=== PATIENT | female | born 1995 | race Caucasian/White ===

== ENCOUNTER 2018-11-21 08:15 | Emergency (ER) | payer SELFPAY ==
[2018-11-21] MEDS ORDERED: AZITHROMYCIN 250 MG TAB ONE (09:00)
[2018-11-21] MEDS ORDERED: CEFTRIAXONE 1000 MG/VIAL ONE (09:00)
[2018-11-21] MEDS ORDERED: LIDOCAINE 1% MPF 5 ML VIAL ONE (09:00)
[2018-11-21 09:34] LABS: Urine Blood TRACE (NEG); Urine Glucose NEGATIVE (NEG); Urine Protein NEGATIVE (NEG); Urine Specific Gravity 1.025 (1.005-1.030)
--- NOTE | 2018-11-21 09:40 | ER ---
Nurse's Notes [facility] Name: Denise Mistry Age: 23 yrs Sex: Female : 1995 Arrival Date: 11/21/2018 Time: 08:20 Bed 20 Private MD: Diagnosis: Abdominal tenderness;Dysuria;Polycystic ovarian syndrome Presentation: 11/21 08:35 Presenting complaint: Suprapubic pain, urinary incontinence, and recent possible STD hb exposure. Transition of care: patient was not received from another setting of care. Onset of symptoms was November 21, 2018. Risk Assessment: Do you want to hurt yourself or someone else? Patient reports no desire to harm self or others. Initial Sepsis Screen: Does the patient meet any 2 criteria? No. Patient's initial sepsis screen is negative. Does the patient have a suspected source of infection? No. Patient's initial sepsis screen is negative. Care prior to arrival: None. 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 - Social history:: Smoking status: Patient uses tobacco products, smokes one-half pack cigarettes per day. - Ebola Screening: : No symptoms or risks identified at this time. - Family history:: not pertinent. Screenin:40 Abuse screen: Denies threats or abuse. Nutritional screening: No deficits noted. aa5 Tuberculosis screening: No symptoms or risk factors identified. Fall Risk None identified. Assessment: 08:40 General: Appears comfortable, Behavior is calm, cooperative. Pain: Complains of pain in aa5 suprapubic area Pain does not radiate. Pain currently is 3 out of 10 on a pain scale. Quality of pain is described as pressure, Is intermittent. Neuro: Level of Consciousness is awake, alert, obeys commands, Oriented to person, place, time, situation. Cardiovascular: Heart tones S1 S2 present Rhythm is regular. Respiratory: Airway is patent Respiratory effort is even, unlabored, Respiratory pattern is regular, symmetrical, Breath sounds are clear bilaterally. GI: Abdomen is round non-distended, Bowel sounds present X 4 quads. Abd is soft and non tender X 4 quads. Patient currently denies diarrhea, nausea, vomiting. : Reports pain with urination. EENT: No signs and/or symptoms were reported regarding the EENT system. Derm: Skin is pink, warm \T\ dry. Musculoskeletal: Range of motion: intact in all extremities. 09:27 Reassessment: Patient is alert, oriented x 3, equal unlabored respirations, skin aa5 warm/dry/pink. Vital Signs: 08:36 BP 156 / 89; Pulse 86; Resp 16; Temp 98.7; Pulse Ox 100% on R/A; Weight 81.65 kg; hb Height 5 ft. 3 in. (160.02 cm); Pain 3/10; 09:27 BP 122 / 80; Pulse 85; Resp 18 S; Pulse Ox 100% on R/A; aa5 08:36 Body Mass Index 31.89 (81.65 kg, 160.02 cm) hb ED Course: 08:20 Patient arrived in ED. cf2 08:22 Shashi Hyatt MD is Attending Physician. johnnie 08:32 Deb Villalpando, LINUS is Primary Nurse. aa5 08:35 Triage completed. hb 08:36 Arm band placed on. hb 08:40 Patient has correct armband on for positive identification. Bed in low position. Call aa5 light in reach. Side rails up X 1. 09:07 Urine collected: clean catch specimen, clear. dh3 09:39 Moe Miller MD is Referral Physician. johnnie 09:39 Catalina Romero MD is Referral Physician. johnnie 10:05 No provider procedures requiring assistance completed. Patient did not have IV access hb during this emergency room visit. Administered Medications: 09:27 Drug: Rocephin (cefTRIAXone) 1 grams Route: IM; Site: left gluteus; aa5 10:05 Follow up: Response: No adverse reaction aa5 09:27 Drug: Zithromax 1 grams Route: PO; aa5 10:05 Follow up: Response: No adverse reaction aa5 Outcome: 09:40 Discharge ordered by . johnnie 10:05 Discharged to home ambulatory. hb 10:05 Condition: stable 10:05 Discharge instructions given to patient, Instructed on discharge instructions, follow up and referral plans. medication usage, Demonstrated understanding of instructions, follow-up care, medications, Prescriptions given X 3. 10:06 Patient left the ED. Addendum: 11/24/2018 08:06 Addendum: Culture Results: Positive urine culture. No further action required. Bacteria s s sensitive to prescribed antibiotic. Signatures: Shashi Hyatt MD MD cha Calderon, Audri, RN RN aa5 Trish Arzola RN RN Monica Caruso RN RN Elma Green [facility] Sharon Ryder [facility]
--- NOTE | 2018-11-21 09:41 | EDPHYS ---
Physician Documentation [facility] Name: Denise Mistry Age: 23 yrs Sex: Female : 1995 Arrival Date: 11/21/2018 Time: 08:20 Bed 20 Private MD: ED Physician Shashi Hyatt HPI: 11/21 08:42 This 23 yrs old Female presents to ER via Ambulatory with complaints of johnnie Abdominal Pain, issues controlling bladder, passing blood clots. 08:42 The patient presents with urinary symptoms, dysuria, frequency, urgency. Onset: The johnnie symptoms/episode began/occurred 3 day(s) ago. Modifying factors: The symptoms are alleviated by nothing, the symptoms are aggravated by nothing. Associated signs and symptoms: The patient has no apparent associated signs or symptoms. Severity of symptoms: At their worst the symptoms were mild, in the emergency department the symptoms are unchanged. The patient is sexually active, reportedly has a single partner. 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 - Social history:: Smoking status: Patient uses tobacco products, smokes one-half pack cigarettes per day. - Ebola Screening: : No symptoms or risks identified at this time. - Family history:: not pertinent. ROS: 08:42 Constitutional: Negative for fever, chills, and weight loss, Eyes: Negative for injury, johnnie pain, redness, and discharge, ENT: Negative for injury, pain, and discharge, Neck: Negative for injury, pain, and swelling, Cardiovascular: Negative for chest pain, palpitations, and edema, Respiratory: Negative for shortness of breath, cough, wheezing, and pleuritic chest pain, Back: Negative for injury and pain, MS/Extremity: Negative for injury and deformity, Skin: Negative for injury, rash, and discoloration, Neuro: Negative for headache, weakness, numbness, tingling, and seizure, Psych: Negative for depression, anxiety, suicide ideation, homicidal ideation, and hallucinations, Allergy/Immunology: Negative for hives, rash, and allergies, Endocrine: Negative for neck swelling, polydipsia, polyuria, polyphagia, and marked weight changes, Hematologic/Lymphatic: Negative for swollen nodes, abnormal bleeding, and unusual bruising. 08:42 Abdomen/GI: Positive for nausea and vomiting, of the suprapubic area. 08:42 : Positive for urinary symptoms, urinary frequency, small amounts. Exam: 08:42 Constitutional: This is a well developed, well nourished patient who is awake, alert, johnnie and in no acute distress. Head/Face: Normocephalic, atraumatic. Eyes: Pupils equal round and reactive to light, extra-ocular motions intact. Lids and lashes normal. Conjunctiva and sclera are non-icteric and not injected. Cornea within normal limits. Periorbital areas with no swelling, redness, or edema. ENT: Nares patent. No nasal discharge, no septal abnormalities noted. Tympanic membranes are normal and external auditory canals are clear. Oropharynx with no redness, swelling, or masses, exudates, or evidence of obstruction, uvula midline. Mucous membranes moist. Neck: Trachea midline, no thyromegaly or masses palpated, and no cervical lymphadenopathy. Supple, full range of motion without nuchal rigidity, or vertebral point tenderness. No Meningismus. Chest/axilla: Normal chest wall appearance and motion. Nontender with no deformity. No lesions are appreciated. Cardiovascular: Regular rate and rhythm with a normal S1 and S2. No gallops, murmurs, or rubs. Normal PMI, no JVD. No pulse deficits. Respiratory: Lungs have equal breath sounds bilaterally, clear to auscultation and percussion. No rales, rhonchi or wheezes noted. No increased work of breathing, no retractions or nasal flaring. Back: No spinal tenderness. No costovertebral tenderness. Full range of motion. Skin: Warm, dry with normal turgor. Normal color with no rashes, no lesions, and no evidence of cellulitis. MS/ Extremity: Pulses equal, no cyanosis. Neurovascular intact. Full, normal range of motion. Neuro: Awake and alert, GCS 15, oriented to person, place, time, and situation. Cranial nerves II-XII grossly intact. Motor strength 5/5 in all extremities. Sensory grossly intact. Cerebellar exam normal. Normal gait. Psych: Awake, alert, with orientation to person, place and time. Behavior, mood, and affect are within normal limits. 08:42 Abdomen/GI: Inspection: abdomen appears normal, Bowel sounds: normal, Palpation: mild abdominal tenderness, in the suprapubic area, Liver: no appreciated palpable abnormalities, Hernia: not appreciated. Vital Signs: 08:36 BP 156 / 89; Pulse 86; Resp 16; Temp 98.7; Pulse Ox 100% on R/A; Weight 81.65 kg; hb Height 5 ft. 3 in. (160.02 cm); Pain 3/10; 09:27 BP 122 / 80; Pulse 85; Resp 18 S; Pulse Ox 100% on R/A; aa5 08:36 Body Mass Index 31.89 (81.65 kg, 160.02 cm) hb MDM: 08:30 Patient medically screened. [facility] 08:46 Data reviewed: vital signs, nurses notes, lab test result(s). [facility] 11/21 08:37 Order name: Urine Culture [facility] 11/21 09:04 Order name: Urine Dipstick--Ancillary (enter results); Complete Time: 09:38 [facility] 11/21 08:37 Order name: Urine Dipstick-Ancillary (obtain specimen); Complete Time: 09:02 [facility] 11/21 09:04 Order name: Urine --Ancillary (enter results); Complete Time: 09:38 [facility] 11/21 08:37 Order name: Urine Test (obtain specimen); Complete Time: 09:02 [facility] Administered Medications: 09:27 Drug: Rocephin (cefTRIAXone) 1 grams Route: IM; Site: left gluteus; aa5 10:05 Follow up: Response: No adverse reaction [facility] 09:27 Drug: Zithromax 1 grams Route: PO; aa5 10:05 Follow up: Response: No adverse reaction [facility] Disposition: 11/21/18 09:40 Discharged to Home. Impression: Abdominal tenderness, Dysuria, Polycystic ovarian syndrome. - Condition is Stable. - Discharge Instructions: Abdominal Pain, Adult, Dysuria, Ovarian Cyst, Sexually Transmitted Disease, [id number], Abdominal Pain, Adult, Httr-hi-Wiga, Ovarian Cyst, Iwyj-[id number]. - Prescriptions for Ibuprofen 600 mg Oral Tablet - take 1 tablet by ORAL route every 6 hours As needed take with food; 20 tablet. Tylenol- Codeine #3 300-30 mg Oral Tablet - take 2 tablets by ORAL route every 6 hours As needed; 20 tablet. Doxycycline Hyclate 100 mg Oral Tablet - take 1 tablet by ORAL route every 12 hours; 20 tablet. - Medication Reconciliation Form, Thank You Letter, Antibiotic Education, Prescription Opioid Use form. - Follow up: Moe Miller MD; When: 2 - 3 days; Reason: Recheck today's complaints, Continuance of care, Re-evaluation by your physician. Follow up: Catalina Romero MD; When: 2 - 3 days; Reason: Recheck today's complaints, Continuance of care, Re-evaluation by your physician. - Problem is new. - Symptoms have improved. Signatures: Dispatcher [employer] EDMS Shashi Hyatt MD MD cha Calderon, Audri RN RN aa5 Monica Caruso RN RN hb Corrections: (The following items were deleted from the chart) 10:06 09:40 11/21/2018 09:40 Discharged to Home. Impression: Abdominal tenderness; Dysuria; hb Polycystic ovarian syndrome. Condition is Stable. Forms are Medication Reconciliation Form, Thank You Letter, Antibiotic Education, Prescription Opioid Use. Follow up: Moe Miller; When: 2 - 3 days; Reason: Recheck today's complaints, Continuance of care, Re-evaluation by your physician. Follow up: Catalina Romero; When: 2 - 3 days; Reason: Recheck today's complaints, Continuance of care, Re-evaluation by your physician. Problem is new. Symptoms have improved. johnnie
== END 2018-11-21 10:06 | disposition home or self-care (01) ==
LOC: ER 08:15
DX: R30.0 Dysuria (principal); E28.2 Polycystic ovarian syndrome; F17.210 Nicotine dependence, cigarettes, uncomplicated
CPT/HCPCS: 81003; 81025; 87077; 87086; 87088; 87186; 96372; 99283

== ENCOUNTER 2018-12-21 20:18 | Emergency (ER) | payer SELFPAY ==
--- OUTSIDE RECORDS SUMMARY | 2018-12-21 20:20 | XMS REPORT | Clinical Summary ---
:1995 Author Organization [facility] Address [address] [place] [address] Care Team Providers Name Role Phone Pcp, No Primary Care Provider Unavailable Allergies Active Allergy Reactions Severity Noted Date Comments Hydrocodone-Acetaminophen Other (See Comments) 09/02/2018 Angry, dilusional Medications Medication Sig Dispensed Refills Start Date End Date Status predniSONE Take 1 tablet 5 tablet 0 09/02/2018 09/07/2018 (DELTASONE) 50 MG (50 mg total) by tablet mouth daily for 5 days. penicillin v Take 1 tablet 20 tablet 0 09/02/2018 09/12/2018 potassium (VEETID) (500 mg total) 500 MG tablet by mouth every 12 (twelve) hours for 10 days. traMADol (ULTRAM) 50 Take 1 tablet 20 tablet 0 09/02/2018 09/12/2018 mg tablet (50 mg total) by mouth every 6 (six) hours as needed for Pain for up to 10 days. Max Daily Amount: 200 mg Active Problems Not on file Encounters Date Type Specialty Care Team Description 09/02/2018 Emergency Emergency Medicine Gabriela, Will III, Strep pharyngitis (Primary Dx); DO Otalgia, unspecified laterality; Acute URI 09/02/2018 Travel after 12/20/2017 Social History Tobacco Use Types Packs/Day Years Used Date Current Every Day Smoker Smokeless Tobacco: Never Used Alcohol Use Drinks/Week oz/Week Comments No Alcohol Habits Answer Date Recorded How often do you have a drink containing alcohol? Never 09/02/2018 How many drinks containing alcohol do you have on a typical Not asked day when you are drinking? How often do you have six or more drinks on one occasion? Not asked Sex Assigned at Date Recorded Not on file Job Start Date Occupation Industry Not on file Not on file Not on file Travel History Travel Start Travel End No recent travel history available. Last Filed Vital Signs Vital Sign Reading Time Taken Blood Pressure 177/87 09/02/2018 11:32 PM CDT Pulse 105 09/02/2018 11:32 PM CDT Temperature 37 C (98.6 F) 09/02/2018 11:32 PM CDT Respiratory Rate 18 09/02/2018 11:32 PM CDT Oxygen Saturation 98% 09/02/2018 11:33 PM CDT Inhaled Oxygen Concentration - - Weight 95.5 kg (210 lb 8 oz) 09/02/2018 10:58 PM CDT Height - - Body Mass Index - - Plan of Treatment Not on file Results Not on fileafter 12/20/2017
--- OUTSIDE RECORDS SUMMARY | 2018-12-21 20:21 | XMS REPORT ---
:1995 [facility] Address [address] [place] [address] [address] [place] [address] Care Team Providers Name Role Phone Unavailable Unavailable Unavailable Problems This patient has no known problems. Allergies, Adverse Reactions, Alerts This patient has no known allergies or adverse reactions. Medications This patient has no known medications. Encounters Start End Encounter Admission Attending Care Care Encounter Date/Time Date/Time Type Type Clinicians Facility Department ID 2018-07-14 2018-07-14 Emergency E [id number] 19:41:00 19:41:00
[2018-12-21] MEDS ORDERED: IBUPROFEN 400 MG TAB ONE (20:51)
--- NOTE | 2018-12-21 21:28 | ER ---
Nurse's Notes [facility] Name: Denise Mistry Age: 23 yrs Sex: Female : 1995 Arrival Date: 12/21/2018 Time: 20:21 Bed 23 Private MD: Diagnosis: Acute tonsillitis Presentation: 12/21 20:26 Presenting complaint: Patient states: I just feel all over shitty, sore throat, ear la1 pain, body aches tmax 102.8 took tylenol at 1915, motrin at 1830. Transition of care: patient was not received from another setting of care. Onset of symptoms was December 21, 2018. Risk Assessment: Do you want to hurt yourself or someone else? Patient reports no desire to harm self or others. Initial Sepsis Screen: Does the patient meet any 2 criteria? No. Patient's initial sepsis screen is negative. Does the patient have a suspected source of infection? No. Patient's initial sepsis screen is negative. Care prior to arrival: None. 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 - Social history:: Smoking status: Patient uses tobacco products, smokes one pack cigarettes per day. - Ebola Screening: : No symptoms or risks identified at this time. Screenin:57 Abuse screen: Denies threats or abuse. Denies injuries from another. Nutritional mg2 screening: No deficits noted. Tuberculosis screening: No symptoms or risk factors identified. Fall Risk None identified. Assessment: 20:53 General: Appears in no apparent distress. comfortable, Behavior is calm, cooperative. mg2 Pain: Complains of pain in throat. Neuro: Level of Consciousness is awake, alert, obeys commands, Oriented to person, place, time, situation. Cardiovascular: Capillary refill < 3 seconds Patient's skin is warm and dry. Respiratory: Airway is patent Respiratory effort is even, unlabored, Respiratory pattern is regular, symmetrical, Breath sounds are clear bilaterally. in mediastinum, right upper lobe, left upper lobe, right middle lobe, left lower lobe and right lower lobe. GI: No signs and/or symptoms were reported involving the gastrointestinal system. : No signs and/or symptoms were reported regarding the genitourinary system. EENT: Throat is reddened. EENT: Reports sore throat. Derm: Skin is intact, is healthy with good turgor, Skin is pink, warm \T\ dry. normal. Musculoskeletal: Circulation, motion, and sensation intact. Capillary refill < 3 seconds. Vital Signs: 20:27 BP 124 / 86; Pulse 125; Resp 18; Temp 98.9; Pulse Ox 100% on R/A; Weight 86.18 kg; la1 Height 5 ft. 3 in. (160.02 cm); 20:44 Temp 102.2(O); mg2 20:57 BP 111 / 78; Pulse 117; Resp 18; Pulse Ox 100% on R/A; mg2 21:54 BP 120 / 78; Pulse 111; Resp 18; Temp 100.9(O); Pulse Ox 100% on R/A; mg2 20:27 Body Mass Index 33.66 (86.18 kg, 160.02 cm) la1 ED Course: 20:21 Patient arrived in ED. ds1 20:23 [facility] Brumfield [facility]C [facility]. kb 20:23 Nandini Davis MD is Attending Physician. kb 20:23 Chris Granado MD is Attending Physician. kb 20:27 Triage completed. la1 20:27 Arm band placed on left wrist. la1 20:40 Ted Nix RN is Primary Nurse. mg2 20:57 Patient has correct armband on for positive identification. mg2 20:57 No provider procedures requiring assistance completed. Patient did not have IV access mg2 during this emergency room visit. Administered Medications: 20:49 CANCELLED (Duplicate Order): Ibuprofen 600 mg PO once kb 20:51 Drug: Ibuprofen 400 mg Route: PO; mg2 Outcome: 21:27 Discharge ordered by . kb 21:54 Discharged to home ambulatory. mg2 21:54 Condition: stable 21:54 Discharge instructions given to patient, Instructed on discharge instructions, follow up and referral plans. medication usage, Demonstrated understanding of instructions, follow-up care, medications, Prescriptions given X 1. 21:56 Patient left the ED. mg2 Signatures: Mary Brumfield FNP-C FNP-Ai Tong ds1 Zana Sewell RN RN la1 Ted Nix RN RN mg2 Corrections: (The following items were deleted from the chart) 20:28 20:26 Presenting complaint: Patient states: I just feel all over shitty, sore throat, la1 ear pain, body aches la1
--- NOTE | 2018-12-21 21:28 | EDPHYS ---
Physician Documentation [facility] Name: Denise Mistry Age: 23 yrs Sex: Female : 1995 Arrival Date: 12/21/2018 Time: 20:21 Bed 23 Private MD: ED Physician Chris Granado HPI: 12/21 20:50 This 23 yrs old Female presents to ER via Ambulatory with complaints of Sore kb Throat. 20:50 The patient presents with sore throat. The patient describes throat pain as constant. kb Onset: The symptoms/episode began/occurred yesterday. Severity of symptoms: At their worst the symptoms were moderate, in the emergency department the symptoms are unchanged. Modifying factors: The symptoms are alleviated by nothing, the symptoms are aggravated by swallowing, Patient's oral intake status: limited fluid intake, limited food intake, unaware of sick contact. Associated signs and symptoms: Pertinent positives: fever, flu-like symptoms, Sore throat. The patient has not experienced similar symptoms in the past. The patient has not recently seen a physician. 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 - Social history:: Smoking status: Patient uses tobacco products, smokes one pack cigarettes per day. - Ebola Screening: : No symptoms or risks identified at this time. ROS: 20:49 Neck: Negative for injury, pain, and swelling, Cardiovascular: Negative for chest pain, kb palpitations, and edema, Respiratory: Negative for shortness of breath, cough, wheezing, and pleuritic chest pain, Abdomen/GI: Negative for abdominal pain, nausea, vomiting, diarrhea, and constipation, Back: Negative for injury and pain, MS/Extremity: Negative for injury and deformity, Skin: Negative for injury, rash, and discoloration, Neuro: Negative for headache, weakness, numbness, tingling, and seizure. 20:49 Constitutional: Positive for body aches, chills, fatigue, fever, malaise. 20:49 ENT: Positive for sore throat. Exam: 20:48 Constitutional: This is a well developed, well nourished patient who is awake, alert, kb and in no acute distress. Head/Face: Normocephalic, atraumatic. Neck: Trachea midline, no thyromegaly or masses palpated, and no cervical lymphadenopathy. Supple, full range of motion without nuchal rigidity, or vertebral point tenderness. No Meningismus. Chest/axilla: Normal chest wall appearance and motion. Nontender with no deformity. No lesions are appreciated. Cardiovascular: Regular rate and rhythm with a normal S1 and S2. No gallops, murmurs, or rubs. Normal PMI, no JVD. No pulse deficits. Respiratory: Lungs have equal breath sounds bilaterally, clear to auscultation and percussion. No rales, rhonchi or wheezes noted. No increased work of breathing, no retractions or nasal flaring. Abdomen/GI: Soft, non-tender, with normal bowel sounds. No distension or tympany. No guarding or rebound. No evidence of tenderness throughout. Back: No spinal tenderness. No costovertebral tenderness. Full range of motion. Skin: Warm, dry with normal turgor. Normal color with no rashes, no lesions, and no evidence of cellulitis. MS/ Extremity: Pulses equal, no cyanosis. Neurovascular intact. Full, normal range of motion. Neuro: Awake and alert, GCS 15, oriented to person, place, time, and situation. Cranial nerves II-XII grossly intact. Motor strength 5/5 in all extremities. Sensory grossly intact. Cerebellar exam normal. Normal gait. 20:48 ENT: External ear(s): are unremarkable, Ear canal(s): are normal, TM's: are normal, Nose: is normal, Mouth: is normal, Posterior pharynx: Airway: normal, no evidence of obstruction, Tonsils: bilaterally enlarged, with erythema, with exudate, Uvula: normal, midline, swelling, that is moderate, erythema, that is moderate, exudate, that is moderate. Vital Signs: 20:27 BP 124 / 86; Pulse 125; Resp 18; Temp 98.9; Pulse Ox 100% on R/A; Weight 86.18 kg; la1 Height 5 ft. 3 in. (160.02 cm); 20:44 Temp 102.2(O); mg2 20:57 BP 111 / 78; Pulse 117; Resp 18; Pulse Ox 100% on R/A; mg2 21:54 BP 120 / 78; Pulse 111; Resp 18; Temp 100.9(O); Pulse Ox 100% on R/A; mg2 20:27 Body Mass Index 33.66 (86.18 kg, 160.02 cm) la1 MDM: 20:30 Patient medically screened. kb 20:47 Data reviewed: vital signs, nurses notes. Data interpreted: Pulse oximetry: on room air kb is 100 %. Interpretation: normal. 21:26 Counseling: I had a detailed discussion with the patient and/or guardian regarding: the kb historical points, exam findings, and any diagnostic results supporting the discharge/admit diagnosis, lab results, the need for outpatient follow up, a family practitioner, to return to the emergency department if symptoms worsen or persist or if there are any questions or concerns that arise at home. 12/21 20:28 Order name: Strep; Complete Time: 20:53 la 12/21 20:28 Order name: Flu; Complete Time: 21:05 [facility] 12/21 20:55 Order name: Throat Culture EDMD 12/21 21:02 Order name: Urine Dipstick--Ancillary (enter results) 12/21 21:02 Order name: Urine --Ancillary (enter results) 12/21 21:05 Order name: [place] Screen Profile; Complete Time: 21:26 kb 12/21 20:47 Order name: Urine Dipstick-Ancillary (obtain specimen); Complete Time: 20:53 kb Administered Medications: 20:49 CANCELLED (Duplicate Order): Ibuprofen 600 mg PO once kb 20:51 Drug: Ibuprofen 400 mg Route: PO; mg2 Disposition: 12/22 09:15 Co-signature as Attending Physician, Chris Granado MD I agree with the assessment and wa plan of care. Disposition: 12/21/18 21:27 Discharged to Home. Impression: Acute tonsillitis. - Condition is Stable. - Discharge Instructions: Tonsillitis, [id number]. - Prescriptions for Augmentin 875- 125 mg Oral Tablet - take 1 tablet by ORAL route every 12 hours for 10 days; 20 tablet. - Medication Reconciliation Form, Thank You Letter, Antibiotic Education, Prescription Opioid Use, Work release form form. - Follow up: Emergency Department; When: As needed; Reason: Worsening of condition. Follow up: Private Physician; When: 2 - 3 days; Reason: Recheck today's complaints, Continuance of care, Re-evaluation by your physician. Signatures: Dispatcher [employer] EDMary Matamoros, IT SOFTWARE ENGINEER-C IT SOFTWARE ENGINEER-Ckb Zana Sewell RN RN la1 Chris Granado MD MD wa Gardose, Michele, RN RN mg2 Corrections: (The following items were deleted from the chart) 12/21 20:49 20:47 Ibuprofen 600 mg PO once ordered. kb kb 21:56 21:27 12/21/2018 21:27 Discharged to Home. Impression: Acute tonsillitis. Condition is mg2 Stable. Forms are Medication Reconciliation Form, Thank You Letter, Antibiotic Education, Prescription Opioid Use. Follow up: Emergency Department; When: As needed; Reason: Worsening of condition. Follow up: Private Physician; When: 2 - 3 days; Reason: Recheck today's complaints, Continuance of care, Re-evaluation by your physician. kb
[2018-12-21 22:03] VITALS: O2SAT 100
[2018-12-21 22:06] VITALS: BP 120/78; TEMP 100.9
[2018-12-21 22:13] LABS: Urine Blood 2+ (NEG); Urine Glucose NEGATIVE (NEG); Urine Protein NEGATIVE (NEG)
== END 2018-12-21 21:56 | disposition home or self-care (01) ==
LOC: ER 20:18
DX: J03.90 Acute tonsillitis, unspecified (principal); F17.210 Nicotine dependence, cigarettes, uncomplicated; Z88.6 Allergy status to analgesic agent
CPT/HCPCS: 36415; 81003; 81025; 86308; 87070; 87081; 87804; 99283

== ENCOUNTER 2019-08-16 23:39 | Emergency (ER) | payer OTHER, SELFPAY ==
--- OUTSIDE RECORDS SUMMARY | 2019-08-16 23:41 | XMS REPORT | Clinical Summary ---
:1995 Author Organization [facility] Address [address] [place] [address] Care Team Providers Name Role Phone Pcp Primary Care Provider Unavailable Allergies Active Allergy Reactions Severity Noted Date Comments Hydrocodone-Acetaminophen Other (See Comments) 019 Angry, dilusional Medications Medication Sig Dispensed Refills Start Date End Date Status predniSONE Take 1 tablet 5 tablet 0 09/02/2018 09/07/2018 Exp ired (DELTASONE) 50 MG (50 mg total) by tablet mouth daily for 5 days. penicillin v Take 1 tablet 20 tablet 0 09/02/2018 09/12/2018 E xpired potassium (VEETID) (500 mg total) 500 MG tablet by mouth every 12 (twelve) hours for 10 days. traMADol (ULTRAM) 50 Take 1 tablet 20 tablet 0 09/02/201808/31 mg tablet (50 mg total) by mouth every 6 (six) hours as needed for Pain for up to 10 days. Max Daily Amount: 200 mg Active Problems Not on file Encounters Date Type Specialty Care Team Description 09/02/2018 Emergency Emergency Medicine Gabriela, Will III, Stre p pharyngitis (Primary Dx); DO Otalgia, unspec ified laterality; Acute URI 09/02/2018 Travel after 08/15/2018 Social History Tobacco Use Types Packs/Day Years [...] six or more drinks on one occasion? No t asked Sex Assigned at Date Recorded Not [...] kg (210 lb 8 oz) 09/02/2018 10:58 P M CDT Height - - Body Mass Index - - Plan of Treatment Not on file Results Not on fileafter 08/15/2018
--- OUTSIDE RECORDS SUMMARY | 2019-08-16 23:41 | XMS REPORT ---
:1995 Author Name Admin, Baldwin Address Unavailable Unavailable , PROBLEMS Condition Status Date Provider Notes Bipolar active Nevin Harshad Maternal care for low transverse previous active Nevin Harshad Missed period active Nevin Mack ENCOUNTERS Date Type Provider Location Encounter Diagn osis - Ambulatory Nevin Harshad [facility] [facility] Encounter Nevin Harshad Shana CHIEF JUVENILE PROBATION OFFICER - Ambulatory Nevin Harshad [place] Missed period Maternal Encounter Nevin Harshad Shana CHIEF JUVENILE PROBATION OFFICER care for low Christine White transverse p revious C-sectionBipola r VITAL SIGNS Date Observation Value Provider oxygen saturation, oximetry 99 % [place] White " method used to obtain blood pressure automatic Christine White " Blood Pressure Position 01 sitting [place] iliana White " blood pressure, site #1 left arm [place] e White " blood pressure, diastolic 86 mm[Hg] Guadal upe White " blood pressure, systolic 107 mm[Hg] Guadalu pe White " pulse rate E&M 78 /min Christine White " temperature site oral Christine White " temperature E&M 98.9 [degF] Christine White " weight E&M 202.50 lbs. Christine White " weight in kilograms E&M 92.05 kg [place] e White " height E&M 63 [in_i] Christine White " height in centimeters E&M 160.02 cm Guadal upe White Allergies No Known Allergy Information REASON FOR REFERRAL No Information Available RESULTS Date Observation Value Provider Reference Interpretation Loc ation Range / beta HCG, urine, positive Christine 06 semiquantitative White HISTORY OF IMMUNIZATIONS No Information Available Medications No Known Medication Information SOCIAL HISTORY Date Observation Value Provider sex at Female Christine White " drug use, illicit Never Christine Whit e " alcohol use Previously Christine White " sexual orientation Choose not to disclose Guadal upe White " is there any chance that you could No Christine White be ? " passive cigarette smoke exposure No Christine White " if the patient is using/has used a No Christine White vaping item, Current, Former, Never Used, Not asked " smoking status former smoker Christine White FUNCTIONAL STATUS No Information Available MENTAL STATUS No Information Available MEDICAL EQUIPMENT No Information Available FAMILY HISTORY No Information Available INSURANCE PROVIDERS No Information Available ADVANCE DIRECTIVES No Information Available TREATMENT PLAN Date Name hCG,Beta Subunit, Qnt, Serum Progesterone Hgb Frac. Profile (w/solubil ity/percentages) [facility] Only Drug Profile, Urine (7 Drugs ) + Alcohol Cystic Fibrosis Profile Pap IG, rfx HPV ASCU (21-29) Urine Culture, Routine RPR, Rfx Qn RPR/Confirm TP HIV 1/2 ANTIGEN/ANTIBODY, FO URTH GENERATION W/RFL HBsAg Screen Gc/Ct/Trich CBC With Differential/Platel et ANTIBODY SCREEN, RBC W/REFL ID, TITER AND AG ABO Grouping and Rho(D) Typi ng New Patient Detailed - [id number] Urinalysis - - In House HISTORY OF PROCEDURES Procedure Date Procedure Name Provider Procedure Notes Status Urinalysis - - In [facility] completed House GOALS No Information Available HEALTH CONCERNS No Information Available
--- OUTSIDE RECORDS SUMMARY | 2019-08-16 23:41 | XMS REPORT ---
:1995 Author Name Admin, [place] Address Unavailable Unavailable , PROBLEMS Condition Status Date Provider Notes Bipolar active Nevin Harshad Maternal care for low transverse previous active Nevin Harshad Missed period active Nevin [place] ENCOUNTERS Date Type Provider Location Encounter Diagn osis - Ambulatory Nevin Harshad [place] Encounter Nevin Harshad Shana DRYING OVEN TENDER - Ambulatory Nevin Harshad [place] Missed period Maternal Encounter Nevin Harshad Shana DRYING OVEN TENDER care for low Christine White transverse p [...] Rho(D) Typi ng New Patient Detailed - [id number] Urinalysis - - In House HISTORY OF PROCEDURES Procedure Date Procedure Name Provider Procedure Notes Status Urinalysis - - In [facility] completed House GOALS No Information Available HEALTH CONCERNS No Information Available
[2019-08-17 00:17] LABS: Urine Blood NEGATIVE (NEG); Urine Glucose NEGATIVE (NEG); Urine Protein NEGATIVE (NEG); Urine Specific Gravity >1.030 (1.005-1.030)
[2019-08-17] MEDS ORDERED: NA CHLORIDE 0.9% 1,000 ML ONE (00:23)
[2019-08-17] MEDS ORDERED: PROMETHAZINE INJ 25 MG/ML AMP ONE (00:23)
[2019-08-17 00:37] LABS: Absolute Lymphocytes (CBC) 2.3 K/uL (0.7-4.9); Basophils % 0.5 % (0-1.3); Hematocrit 36.6 % (36.0-45.0); RBC Red Blood Cell Count 3.95 M/uL (3.86-4.86)
--- NOTE | 2019-08-17 01:01 | EDPHYS ---
Physician Documentation [facility] Name: Denise Mistry Age: 24 yrs Sex: Female : 1995 Arrival Date: 08/16/2019 Time: 23:41 Bed 19 Private MD: ED Physician Shashi Hyatt HPI: 08/16 00:16 This 24 yrs old Female presents to ER via Ambulatory with complaints of kb Abdominal Pain. 00:16 The patient presents to the emergency department with abdominal pain, of the suprapubic kb area, nausea and vomiting. The estimated gestational age is 11 weeks. course: care: private OB physician, Leakage of Fluid: none appreciated, Ultrasound: the patient had an ultrasound, Risk/complications: no obvious risks or complications are appreciated. Associated signs and symptoms: Pertinent positives: abdominal pain, nausea, vomiting, Pertinent negatives: chest pain, diarrhea, dysuria, fever, frequency, ruptured membranes, seizure, shortness of breath, vaginal bleeding, vaginal discharge. The patient has not experienced similar symptoms in the past. The patient has not recently seen a physician. 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 - Social history:: Smoking status: Patient/guardian denies using tobacco, Stopped _ months ago 2. ROS: 00:15 Constitutional: Negative for fever, chills, and weight loss, Cardiovascular: Negative kb for chest pain, palpitations, and edema, Respiratory: Negative for shortness of breath, cough, wheezing, and pleuritic chest pain, Back: Negative for injury and pain, MS/Extremity: Negative for injury and deformity, Skin: Negative for injury, rash, and discoloration, Neuro: Negative for headache, weakness, numbness, tingling, and seizure. 00:15 Abdomen/GI: Positive for abdominal pain, nausea and vomiting, Negative for diarrhea, constipation, abdominal cramps, abdominal distension, anorexia. Exam: 00:15 Constitutional: This is a well developed, well nourished patient who is awake, alert, kb and in no acute distress. Head/Face: Normocephalic, atraumatic. Chest/axilla: Normal chest wall appearance and motion. Nontender with no deformity. No lesions are appreciated. Cardiovascular: Regular rate and rhythm with a normal S1 and S2. No gallops, murmurs, or rubs. Normal PMI, no JVD. No pulse deficits. Respiratory: Lungs have equal breath sounds bilaterally, clear to auscultation and percussion. No rales, rhonchi or wheezes noted. No increased work of breathing, no retractions or nasal flaring. Abdomen/GI: Soft, non-tender, with normal bowel sounds. No distension or tympany. No guarding or rebound. No evidence of tenderness throughout. Back: No spinal tenderness. No costovertebral tenderness. Full range of motion. Skin: Warm, dry with normal turgor. Normal color with no rashes, no lesions, and no evidence of cellulitis. MS/ Extremity: Pulses equal, no cyanosis. Neurovascular intact. Full, normal range of motion. Neuro: Awake and alert, GCS 15, oriented to person, place, time, and situation. Cranial nerves II-XII grossly intact. Motor strength 5/5 in all extremities. Sensory grossly intact. Cerebellar exam normal. Normal gait. Vital Signs: 00:01 BP 137 / 83; Pulse 93; Resp 18; Temp 98.1(O); Pulse Ox 98% on R/A; Weight 94.35 kg; tl2 Height 5 ft. 3 in. (160.02 cm); Pain 8/10; 01:00 BP 122 / 70; Pulse 90; Resp 17; Pulse Ox 99% ; rr5 00:01 Body Mass Index 36.85 (94.35 kg, 160.02 cm) tl2 MDM: 00:00 Patient medically screened. kb 00:15 Data reviewed: vital signs, nurses notes. Data interpreted: Pulse oximetry: on room air kb is 98 %. Interpretation: normal. 00:42 Counseling: I had a detailed discussion with the patient and/or guardian regarding: the kb historical points, exam findings, and any diagnostic results supporting the discharge/admit diagnosis, lab results, the need for outpatient follow up, an OB/Gyne specialist, to return to the emergency department if symptoms worsen or persist or if there are any questions or concerns that arise at home. 08/16 00:12 Order name: Quantitative Hcg; Complete Time: 17:00 kb 08/16 00:12 Order name: Abo/rh Typing; Complete Time: 00:45 kb 08/16 00:12 Order name: Basic Metabolic Panel; Complete Time: 17:00 kb 08/16 00:12 Order name: CBC with Diff; Complete Time: 00:42 kb 08/16 00:14 Order name: Urine --Ancillary (enter results); Complete Time: 00:18 kb 08/16 00:14 Order name: Urine Dipstick--Ancillary (enter results); Complete Time: 00:18 kb 08/16 00:12 Order name: Urine Test (obtain specimen); Complete Time: 00:30 kb 08/16 00:12 Order name: IV Saline Lock; Complete Time: 00:30 kb 08/16 00:12 Order name: Labs collected and sent; Complete Time: 00:30 kb 08/16 00:12 Order name: NPO; Complete Time: 00:31 kb 08/16 00:12 Order name: Urine Dipstick-Ancillary (obtain specimen); Complete Time: 00:31 kb 08/16 01:09 Order name: ABO/RH no charge; Complete Time: 17:00 EDMS Administered Medications: 00:25 Drug: NS 0.9% 1000 ml Route: IV; Rate: 1000 ml; Site: right forearm; rr5 01:15 Follow up: Response: No adverse reaction; IV Status: Completed infusion; IV Intake: rr5 1000ml 00:25 Drug: Phenergan 6.25 mg Route: IVP; Site: right forearm; rr5 01:15 Follow up: Response: No adverse reaction rr5 Disposition: 08:02 Co-signature as Attending Physician, Shashi Hyatt MD I agree with the assessment and johnnie plan of care. Disposition: 08/17/19 01:00 Discharged to Home. Impression: Vomiting of , unspecified. - Condition is Stable. - Discharge Instructions: Morning Sickness, [id number], Nausea and Vomiting, Adult, Dhph-ej-Hvaf. - Prescriptions for Diclegis 10- 10 mg Oral tablet,delayed release (DR/EC) - take 1 tablet by ORAL route once daily As needed; 10 tablet. - Medication Reconciliation Form, Thank You Letter, Antibiotic Education, Prescription Opioid Use form. - Follow up: Emergency Department; When: As needed; Reason: Worsening of condition. Follow up: Private Physician; When: 2 - 3 days; Reason: Recheck today's complaints, Continuance of care, Re-evaluation by your physician. Signatures: Dispatcher [employer] EDCT Mary Brumfield, WILLOW-Yessica DAUGHERTY-Shashi Burgos MD MD cha Knox, Taylor, RN RN tl2 Haseeb Miranda, RN RN rr5 Corrections: (The following items were deleted from the chart) 01:15 01:00 08/17/2019 01:00 Discharged to Home. Impression: Vomiting of , rr5 unspecified. Condition is Stable. Discharge Instructions: Morning Sickness, [id number], Nausea and Vomiting, Adult, Wruc-bf-Myii. Prescriptions for Diclegis 10-10 mg Oral tablet,delayed release (DR/EC) - take 1 tablet by ORAL route once daily As needed; 10 tablet. and Forms are Medication Reconciliation Form, Thank You Letter, Antibiotic Education, Prescription Opioid Use. Follow up: Emergency Department; When: As needed; Reason: Worsening of condition. Follow up: Private Physician; When: 2 - 3 days; Reason: Recheck today's complaints, Continuance of care, Re-evaluation by your physician. kb
--- NOTE | 2019-08-17 01:01 | ER ---
Nurse's Notes [facility] Name: Denise Mistry Age: 24 yrs Sex: Female : 1995 Arrival Date: 08/16/2019 Time: 23:41 Bed 19 Private MD: Diagnosis: Vomiting of , unspecified Presentation: 08/16 00:01 Chief complaint: Patient states: Reports severe lower abdominal pain and tl2 nausea/vomiting after eating today. Pt is 11 weeks . States pain radiates to EDWIN flank. Pt started escitalopram 2 days ago. Coronavirus screen: Proceed with normal triage. Patient denies a cough. Patient denies shortness of breath or difficulty breathing. Patient denies measured and/or subjective temperature greater than 100.4F prior to today's visit. Patient denies travel on a cruise ship or to a country the [facility] currently lists as an affected area. Patient denies contact with known and/or suspected case of COVID-19. Ebola Screen: No symptoms or risks identified at this time. Initial Sepsis Screen: Does the patient meet any 2 criteria? No. Patient's initial sepsis screen is negative. Does the patient have a suspected source of infection? No. Patient's initial sepsis screen is negative. Risk Assessment: Do you want to hurt yourself or someone else? Patient reports no desire to harm self or others. Onset of symptoms was August 16, 2019 at 18:00. 00:01 Method Of Arrival: Ambulatory tl2 00:01 Acuity: ELLE 3 tl2 Triage Assessment: 00:04 General: Appears in no apparent distress. uncomfortable, Behavior is calm, cooperative, tl2 appropriate for age. Pain: Complains of pain in suprapubic area, right lower quadrant and left lower quadrant Pain radiates to EDWIN flank. GI: Reports lower abdominal pain, nausea, vomiting. 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 - Social history:: Smoking status: Patient/guardian denies using tobacco, Stopped _ months ago 2. Screenin:04 Abuse screen: Denies threats or abuse. Nutritional screening: No deficits noted. tl2 Tuberculosis screening: No symptoms or risk factors identified. Fall Risk None identified. Assessment: 00:00 General: Appears in no apparent distress. comfortable, Behavior is calm, cooperative, rr5 appropriate for age. Pain: Complains of pain in right lower quadrant and left lower quadrant Pain radiates to bilateral flank Pain Quality of pain is described as aching, Pain began gradually, Is intermittent. Neuro: Level of Consciousness is awake, alert, obeys commands, Oriented to person, place, time, situation, Appropriate for age. Cardiovascular: Capillary refill < 3 seconds Patient's skin is warm and dry. Respiratory: Airway is patent Respiratory effort is even, unlabored, Respiratory pattern is regular, symmetrical. GI: Abdomen is round non-distended, Reports lower abdominal pain, nausea, vomiting. : No signs and/or symptoms were reported regarding the genitourinary system. EENT: No signs and/or symptoms were reported regarding the EENT system. Derm: Skin is intact, is healthy with good turgor, Skin temperature is warm. Musculoskeletal: Circulation, motion, and sensation intact. Capillary refill < 3 seconds. 00:30 Reassessment: Patient appears in no apparent distress at this time. Patient and/or rr5 family updated on plan of care and expected duration. Pain level reassessed. 01:10 Reassessment: Patient appears in no apparent distress at this time. Patient is alert, rr5 oriented x 3, equal unlabored respirations, skin warm/dry/pink. discharge instruction given and explained without complaints made. Patient states symptoms have improved. Vital Signs: 00:01 BP 137 / 83; Pulse 93; Resp 18; Temp 98.1(O); Pulse Ox 98% on R/A; Weight 94.35 kg; tl2 Height 5 ft. 3 in. (160.02 cm); Pain 8/; 01:00 BP 122 / 70; Pulse 90; Resp 17; Pulse Ox 99% ; rr5 00:01 Body Mass Index 36.85 (94.35 kg, 160.02 cm) tl2 ED Course: 08/15 23:41 Patient arrived in ED. fj1 08/16 00:00 [facility] chai 00:00 Shashi Hyatt MD is Attending Physician. kb 00:03 Triage completed. tl2 00:04 Arm band placed on right wrist. tl2 00:05 Patient has correct armband on for positive identification. Placed in gown. Bed in low tl2 position. Call light in reach. Side rails up X 1. 00:12 Haseeb Miranda, RN is Primary Nurse. rr5 00:25 Inserted saline lock: 20 gauge in right forearm, using aseptic technique. Blood rr5 collected. 01:10 No provider procedures requiring assistance completed. IV discontinued, intact, rr5 bleeding controlled, No redness/swelling at site. Pressure dressing applied. Administered Medications: 00:25 Drug: NS 0.9% 1000 ml Route: IV; Rate: 1000 ml; Site: right forearm; rr5 01:15 Follow up: Response: No adverse reaction; IV Status: Completed infusion; IV Intake: rr5 1000ml 00:25 Drug: Phenergan 6.25 mg Route: IVP; Site: right forearm; rr5 01:15 Follow up: Response: No adverse reaction rr5 Intake: 01:15 IV: 1000ml; Total: 1000ml. rr5 Outcome: 01:00 Discharge ordered by . kb 01:10 Discharged to home ambulatory. rr5 01:10 Condition: stable 01:10 Discharge instructions given to patient, Instructed on discharge instructions, follow up and referral plans. medication usage, Demonstrated understanding of instructions, follow-up care, medications, Prescriptions given X 1. 01:15 Patient left the ED. rr5 Signatures: Mary Brumfield FNP-C FNP-Ckb Knox, Taylor RN RN tl2 Haseeb Miranda, RN RN rr5 Nahun Vickers fj
[2019-08-17 01:10] LABS: BUN Blood Urea Nitrogen 8 mg/dL (7-18); Bicarbonate 23 mmol/L (21-32); Glucose Level 86 mg/dL (74-106); HCG, Quantitative 52981 mIU/mL (1-3); Potassium 3.7 mmol/L (3.5-5.1); Sodium Level 139 mmol/L (136-145)
[2019-08-17 01:26] VITALS: BP 137/83; TEMP 98.1; O2SAT 98
== END 2019-08-17 01:15 | disposition home or self-care (01) ==
LOC: ER 23:39
DX: O21.9 Vomiting of pregnancy, unspecified (principal); Z3A.11 11 weeks gestation of pregnancy; Z88.5 Allergy status to narcotic agent
CPT/HCPCS: 96361; 85025; 80048; 36415; 86900; 81025; 86901; 84702; 81003; 96374; 99284; J2550; J7030

== ENCOUNTER 2020-08-11 08:58 | Emergency (ER) | payer OTHER ==
--- OUTSIDE RECORDS SUMMARY | 2020-08-11 09:01 | XMS REPORT | Continuity of Care Document ---
:1995 Author Organization [facility] t Address [address] [place] [address] Care Team Providers Name Role Phone Pcp MD, No Primary Care Physician Unavailable Freida Diaz Attending Clinician Doctor Unassigned, Name Attending Clinician Unavailable John Attending Clinician Unavailable Yenni Muller Attending Clinician Unavailable Harshad Attending Clinician [phone] Leslie Attending Clinician Unavailable Harshad Unavailable [phone] Payers Payer Name Policy Type Policy Number Effective Date Expiration Date S ource Problems Condition Condition Condition Status Onset Resolution Last Treating Co mments Source Name Details Category Date Date Treatment Clinician Date UTI, acute Condition Active 2019-08-08 Ravi Patricia 08-07 17:58:56 [facility] 00:00: ty 00 Health Bipolar Condition Active 2019-07-07 Ravi Patricia 07-06 11:41:05 [facility] 00:00: ty 00 Health Maternal Condition Active 2019-07-07 Ravi Patricia care for 07-06 11:41:05 [facility] low 00:00: ty transverse 00 Health previous Missed Condition Active 2019-07-07 Harshad, [facility] period 07-06 11:41:05 [facility] 00:00: ty 00 Health Allergies, Adverse Reactions, Alerts Allergy Allergy Status Severity Reaction(s) Onset Inactive Treating Comm ents Source Name Type Date Date Clinician hydrocod DA Active [facility] one bit 6-11 Clear 00:00: [place] 00 [facility] adhesive DA Active [place] [facility] tape 611 Clear 00:00: Riojas 00 [facility] Hydrocod Propensi Active Other (See Angry, [facility] one-Acet ty to Comments) 09-02 dilusiona Jenni kes - aminophe adverse 00:00: l Medical n reaction 00 Center s hydrocod DA Active [facility] one bit 9-30 [place] 00:[facility]: e 00 [facility] adhesive DA Active [place] [facility] tape 9-30 [place] 00:00: e 00 [facility] Social History Social Habit Start Date Stop Date Quantity Comments Source History SDOH [facility] Std Drinks [facility] History SDOH [facility] - Alcohol Binge Medical Miriam ter Sex Assigned At [facility] time of call 2019-09-02 2019-09-02 09/02/2019 12:19 [facility] 12:19:07 12:19:07 PM Health sex at 2019-07-07 2019-07-07 Female [facility] 10:58:18 10:58:18 Health drug use, illicit 2019-07-07 2019-07-07 Never [facility] 10:58:18 10:58:18 Health alcohol use 2019-07-07 2019-07-07 Previously [facility] 10:58:18 10:58:18 Health sexual orientation 2019-07-07 2019-07-07 Choose not to Leg [facility] 10:58:18 10:58:18 disclose Health is there any chance 2019-07-07 2019-07-07 No [facility] that you could be 10:58:18 10:58:18 Health ? if the patient is 2019-07-07 2019-07-07 No [facility] using/has used a 10:58:18 10:58:18 Health vaping item, Current, Former, Never Used, Not asked Tobacco use and 2018-09-02 2018-09-02 Never used GEORGE Gant kes - exposure 00:00:00 00:00:00 Medical Center Alcohol intake 2018-09-02 2018-09-02 Current GEORGE Cosme es - 00:00:00 00:00:00 non-drinker of Medical Ce nter alcohol (finding) History SDOH 2018-09-02 2018-09-02 1 GEORGE Anderson - Alcohol Frequency 00:00:00 00:00:00 Medical Center Smoking Status Start Date Stop Date Source Ex-smoker (finding) 2019-07-07 10:58:18 2019-07-07 10:58:18 Lega cy [facility] Health Current every day 2018-09-02 00:00:00 GEORGE Cosme es - Medical smoker Center Medications Ordered Filled Start Stop Current Ordering Indication Dosage Frequency Signature Comments Components Source Medication Medication Date Date Medication? Clinician (SIG) Name Name MACROBID Yes Nevin 1 tab By Lega cy (NITROFURAN 5-08 [facility] TOIN 00:00: ty MONOHYD 00 Health MACRO) 100 MG CAPS Vital Signs Vital Name Observation Time Observation Value Comments Source weight E&M 2019-07-07 10:58:18 202.50 [lb_av] [facility] weight in kilograms 2019-07-07 10:58:18 92.05 kg [facility] E& Health height in 2019-07-07 10:58:18 160.02 cm [facility] centimeters [facility] oxygen saturation, 2019-07-07 10:58:18 99 % [facility] oximetry Health blood pressure, 2019-07-07 10:58:18 86 mm[Hg] [facility] blood pressure, 2019-07-07 10:58:18 107 mm[Hg] [facility] systolic Health pulse rate 2019-07-07 10:58:18 78 /min [facility] temperature site 2019-07-07 10:58:18 oral Lega cy [facility] temperature E&M 2019-07-07 10:58:18 98.9 [degF] [facility] Health Procedures Procedure Date / Time Performed Performing Clinician Sourc e Urinalysis - 2019-07-07 10:59:56 Harshad, Nevin [facility] - In House Health Plan of Care Planned Activity Planned Date Details Comments Source Future Scheduled 2019-12-02 INFLUENZA VACCINE (#1) [facility] Test 00:[facility]:00 [code = INFLUENZA Medical Ce nter VACCINE (#1)] Future Scheduled [address] [facility] - Test 00:00:00 malignant neoplasm of Medica l Center cervix (procedure) [code = 945311803] Future Scheduled [address] [facility] - Test 00:00:00 (procedure) [code = Medical Center 84951840] Future Scheduled [address] [facility] - Test 00:00:00 0-64 YRS (1 of 1 - Medical C enter PPSV23) [code = PNEUMOCOCCAL VACCINE 0-64 YRS (1 of 1 - PPSV23)] Encounters Start End Encounter Admission Attending Care Care Encounter Source Date/Time Date/Time Type Type Clinicians Facility Department ID 2020-07-27 2020-07-27 Initial Jesse [facility] [id number] 08:32:36 09:34:06 Freida Pillai DUCT INSTALLER [id number] Visit [facility] [id number] MATERNAL [id number] & CHILD [address] [place] [address] 2020-07-27 2020-07-27 Orders Doctor SURENDRA [id number] 00:00:00 00:00:00 Only Unassigned, CHEPE [id number] Yarnell [facility] [id number] 2019-09-02 2019-09-02 Office Jenniffer Lopez Encounter/ Legacy 00:00:00 00:00:00 Visit Nabil Muller [id number] [facility] [id number] ty Services Health [facility] Center 2019-08-13 2019-08-13 Office DEE Lopez Encount er/ Legacy 00:00:00 00:00:00 Visit Jenniffer Johns [id number] [facility] DUCT INSTALLER [id number] Health 2019-08-13 2019-08-13 Office DEE Lopez Encount er/ Legacy 00:00:00 00:00:00 Visit Jenniffer Johns [id number] Communi DUCT INSTALLER [id number] [facility] 2019-08-11 2019-08-11 Office DEE Lopezacy Encount er/ Legacy 00:00:00 00:00:00 [facility] [id number] [facility] [id number] [facility] 2019-08-08 2019-08-08 Office DEE Patricia Legacy Encounte r/ Legacy 00:00:00 00:00:00 Visit Nevin Johns [id number] [facility] [id number] [facility] 2019-07-07 2019-07-07 Office DEE Patriciaacy Encounte r/ Legacy 00:00:00 00:00:00 Visit Nevin Johns [id number] [facility] [id number] [facility] 2019-07-07 2019-07-07 Office Nevin Patriciaacy En counter/ Legacy 00:00:00 00:00:00 Visit John Jenniffer Johns [id number] [facility] [id number] [facility] 2019-07-07 2019-07-07 Office DEE Patricia Legacy Encounte r/ Legacy 00:00:00 00:00:00 Visit Nevin Johns [id number] [facility] [id number] [facility] 2019-07-07 2019-07-07 Office DEE Patricia Legacy Encounte r/ Legacy 00:00:00 00:00:00 Visit Nevin Johns [id number] [facility] [id number] [facility] 2019-07-07 2019-07-07 Office DEE Patricia Legacy Encounte r/ Legacy 00:00:00 00:00:00 Visit [facility] [id number] [facility] [id number] [facility] 2019-07-07 2019-07-07 Office Nevin Patricia Legacy En counter/ Legacy 00:00:00 00:00:00 Visit Christine Nelson [place] 1 [id number] Communi DUCT INSTALLER [id number] Health 2018-07-14 2018-07-14 Emergency E MHSE MHSE 7500 MH 19:41:00 19:41:00 [facility] l Results Test Description Test Time Test Comments Results Result Comments Source BASIC METABOLIC PANEL 2019-09-11 13:19:00 Test Item Value Reference Range Interpretation Comme nts SODIUM (test code = NA) 137 mmol/L 136-145 N POTASSIUM (test code = K) 3.6 mmol/L 3.5-5.1 N CHLORIDE (test code = CL) 106.0 mmol/L 98-107 N CARBON DIOXIDE (test code = 22.0 mmol/L 21-32 N CO2) ANION GAP (test code = GAP) 12.6 10-20 N GLUCOSE (test code = GLU) 77 mg/dL 74-106 N BLOOD UREA NITROGEN (test code 3 mg/dL 7-18 L = BUN) GLOMERULAR FILTRATION RATE > 60 mL/min >=60 E stimated GFR by using (test code = GFR) Modified M DRD formula.Chronic kidney disease is defined as either kidney d amageor GFR <60 mL/min/1.73 m2 for >3 months. CREATININE (test code = CREAT) 0.50 mg/dL 0.55-1.02 L Note change in reference range due to ch elizabeth in reagent. BUN/CREATININE RATIO (test code 5.7 10-20 L = BUN/CREA) CALCIUM (test code = CA) 8.5 mg/dL 8.5-10.1 N HCG SERUM [id number] 13:19:00 Test Item Value Reference Range Interpretation Comments HCG SERUM BETA 76543.0 mIU/mL 0-3 H Interfering substances (test code = present in the serum of HCG) somepatients ma y cause a false-positiv e result in this assay.Questiona ble elevations in s navya hCG should be confi rmedwith a urine hCG. Addison spected Trophoblastic N eoplasms shouldnot be di agnosed based on serun hCG/beta hCG alone. They must be confirmed by cl inical history and tis emiliano diagnosis.INTER PRETATIO N:B-HCG LEVELS <5 SHOULD BE CONSI DERED "NEGATIVE." *WH EN BODERLINE RESUL TS ARE ENCOUNTERED,PAT IENT SAMPLESSHOULD B E REDRAWN 48 HOUR S. 0-1 WEEKS AFTER CONCEPTION 5-50 MIU/ ML1-2 WEEKS AFTER CON CEPTION 50- 500 MIU/ML2-3 WEEKS AFTER CONCEPTION 100 -5,000 MIU /ML3-4 WEEKS AFTER CON CEPTION 500- 10,000 MIU/ML4-5 WEEKS AFTER CONCEPTION 1000 -50,000 MIU/ML5-6 WEEKS AFTER CONCEPTION 10,000-100,000 MIU/ML6-8 WEEKS AFTER CONCEPTION 15,000- 200,000 MIU/ML2-3 MONTH S AFTER CONCEPTION 10,000-100,000 MIU/ML URINALYSIS [id number] 13:17:00 Test Item Value Reference Range Interpretation Comments UA COLOR (test code = YELLOW YELLOW COLU) UA APPEARANCE (test code Cloudy CLEAR A = APPU) UA GLUCOSE DIPSTICK (test NEGATIVE mg/dL NEGATIVE code = DGLUU) UA BILIRUBIN DIPSTICK NEGATIVE mg/dL NEGATIVE (test code = BILU) UA KETONE DIPSTICK (test NEGATIVE mg/dL NEGATIVE code = KETU) UA SPECIFIC GRAVITY (test 1.020 1.001-1.035 code = SGU) UA BLOOD DIPSTICK (test 0.06 mg/dL (1+) NEGATIVE A code = BINDU) mg/dL UA PH DIPSTICK (test code 5.5 5.0-8.0 = CHAU) UA PROTEIN DIPSTICK (test 20 (Trace) mg/dL NEGATIVE A code = PROU) UA UROBILINIOGEN DIPSTICK Normal mg/dL NEGATIVE (test code = URO) UA NITRITE DIPSTICK (test NEGATIVE NEGATIVE code = VICTORIANO) UA LEUKOCYTE ESTERASE W 500 Osmin/uL (3+) NEGATIVE A REFLEX (test code = Osmin/uL LEUUR) UA WBC (test code = WBCU) 51-100 per HPF 0-5 A UA RBC (test code = RBCU) 0-2 #/HPF 0-5 UA EPITHELIAL CELLS (test FEW per HPF FEW code = EPIU) UA BACTERIA (test code = FEW #/HPF NONE A BACU) UA MUCUS (test code = FEW #/LPF FEW MUCU) Urine Source? Clean Catch- US PREG AFTER [id number] 13:04:00 Name: DENISE RUBIO [facility] : 1995 Age/S: 24 / F [address] [facility] Unit #: [id number] Loc: [place] [address] Phys: Chalo Kothari LENS INSPECTOR Acct: [id number] Dis Date: Status: REG ER PHONE #: [phone] Exam Date: 09/11/2019 1244 FAX #: [phone] Reason: PELVIC PAIN-RIGHT EXAMS: CPTCODE: [id number] US PREG AFTER 1ST TRI 37357 HISTORY: Pel justin pain. COMPARISON: None available. Location: [facility]. ultrasound: Survey of the uterus demonstrating single live intrauterine gestation in variable position. Cardiac activity documented with average heart rate of 162 beats per minutes. Posterior, grade 0 placenta. No previa. No retroplacental hemorrhage noted. Cervical length of 4 cm. Normal amniotic fluid volume. [place]-rump length of 8.8 cm would equal 14 weeks 5 days +/- 1 week. LUIS of March 06, 2020. LUIS by outside ultrasound of March 03, 2020. Color and Doppler flow in right ovary with normal spect ral waveform. Right ovary measured 2.4 x 2 x 2.2 cm and left ovary is not seen. IMPRESSION: Single live intrauterine gestation in variable position at 14 weeks 5 days +/- 1 week with average heart rate of 162 beats per minutes. LUIS of March. Posterior, grade 0 placenta without previa or retroplacental hemorrhage. Normal amniotic fluid volume. Color Doppler flow in right ovary. Left ovary isnot seen. at 1304 Reported and signed by: Cy Mack M.D. CC: Chalo Kothari NP Technologist: LACY SCOTT RT(R),RDMS Trnscb Date/Time: 09/11/2019 (1304) [email or web address] Orig Print D/T: S: 09/11/2019 (8375) Probe: PAGE 1 Signed Report- DUP AB/PEL/SC [id number] 13:04:00 [facility] 1995 Age/S: 24 / F [address] Unit #: [id number] Loc: [place], [place] [address] Phys: Chalo Kothari LENS INSPECTOR Acct: [id number] Dis Date: Status: REG ER PHONE #: [phone] Exam Date: 09/11/2019 1200 FAX #: [phone] Reason: PELVIC PAIN EXAMS: CPTCODE: [id number] DUP AB/PEL/SC COMP 09652 HISTORY: Pelvic pain. COMPARISON: None available. Location: [facility]. ultrasound: Survey of the uterus demonstrating single live intrauterine gestation in variable position. Cardiac activity documented with average heart rate of 162 beats per minutes. Posterior, grade 0 placenta. No previa. No retroplacental hemorrhage noted. Cervical length of 4 cm. Normal amniotic fluid volume. [place]-rump length of 8.8 cm would equal 14 weeks 5 days +/- 1 week. LUIS of March 06, 2020. LUIS by outside ultras ound of March 03, 2020. Color and Doppler flow in right ovary with normal spectral waveform. Right ovary measured 2.4 x 2 x 2.2 cm and left ovary is not seen. IMPRESSION: Single live intrauterine gestation in variable position at 14 weeks 5 days +/- 1 week with average heart rate of 162 beats per minutes. LUIS of March 06, 2020. Posterior, grade 0 placenta without previa or retroplacental hemorrhage. Normal amniotic fluid volume. Color Doppler flow in right ovary. Left ovary isnot seen. at 1304 Reported and signed by: Cy Mack M.D. CC: Chalo Kothari NP Technologist: LACY SCOTT RT(R),RDMS Trnscb Date/Time: 09/11/2019 (7254) [email or web address] Orig Print D/T: S: 09/11/2019 (3502) Probe: PAGE 1 Signed ReportUR HCG [id number] 12:59:00 Test Item Value Reference Range Interpretation Comments UR HCG QUAL (test POSITIVE This HCGQ L test is NOT code = HCGQLU) applicable fo r MALE patients.Check with nurse about probable order error.If Tumor Marker Test needed, nu rse should order test "HCG TU"(Test #[id number])---- - CBC W/O [id number] 12:58:00 Test Item Value Reference Range Interpretation Comments WHITE BLOOD CELL (test code = 11.9 K/mm3 4.5-12.5 N WBC) RED BLOOD CELL (test code = 4.01 mill/mm3 3.7-5.2 N RBC) HEMOGLOBIN (test code = HGB) 12.5 gram/dL 11.5-15.5 N HEMATOCRIT (test code = HCT) 36.4 % 36.0-46.0 N MEAN CELL VOLUME (test code = 90.8 fL 80-98 N MCV) MEAN CELL HGB (test code = MCH) 31.2 picogram 27.0-33.0 N MEAN CELL HGB CONCETRATION 34.3 gram/dL 33.0-36.0 N (test code = MCHC) RED CELL DISTRIBUTION WIDTH 12.9 % 11.6-16.2 N (test code = RDW) PLATELET COUNT (test code = 238 K/mm3 150-450 N PLT) MEAN PLATELET VOLUME (test code 11.7 fL 6.7-11.0 H = MPV) BASIC METABOLIC [id number] 12:53:00 Test Item Value Reference Range Interpretation Comments SODIUM (test code = NA) 137 mmol/L 136-145 N POTASSIUM (test code = K) 3.6 mmol/L 3.5-5.1 N CHLORIDE (test code = CL) 106.0 mmol/L 98-107 N CARBON DIOXIDE (test code = CO2) mmol/L 21-32 ANION GAP (test code = GAP) 10-20 GLUCOSE (test code = GLU) mg/dL 74-106 BLOOD UREA NITROGEN (test code = mg/dL 7-18 BUN) GLOMERULAR FILTRATION RATE (test mL/min >=60 code = GFR) CREATININE (test code = CREAT) mg/dL 0.55-1.02 BUN/CREATININE RATIO (test code 10-20 = BUN/CREA) CALCIUM (test code = CA) mg/dL 8.5-10.1 HCG SERUM [id number] 12:53:00 Test Item Value Reference Range Interpretation Comments HCG SERUM BETA (test code = HCG) mIU/mL 0-3 urine [id number] 12:01:00 Test Item Value Reference Range Interpretation Comments urine culture (test code Klebsiella aerogenes A = 630-4) [facility] surface [id number] 12:01:00 Test Item Value Reference Range Interpretation Comments hepatitis B surface antigen (test Negative Negative code = 79) [facility]progesterone, [id number] 12:01:00 Test Item Value Reference Range Interpretation Comments progesterone, serum (test code = 20.7 ng/mL 292) [facility] [id number] 12:01:00 Test Item Value Reference Range Interpretation Comments Rh antibody (test code = 256) Negative Negative [facility] HealthHIV-CMIA (Chemiluminescent Microparticle Immuno Assay) 2019-07-07 12:01:00 Test Item Value Reference Range Interpretation Comments HIV-CMIA (Chemiluminescent Non Reactive Non Reactive Microparticle Immuno Assay) (test code = 138646) [facility]rapid plasma reagin antibody, [id number] 12:01:00 Test Item Value Reference Range Interpretation Comments rapid plasma reagin antibody, Non Reactive Non Reactive serum (test code = 5291-0) [facility], total, [id number] 12:01:00 Test Item Value Reference Range Interpretation Comments human chorionic gonadotropin, 00231 m[iU]/mL total, serum (test code = 3386) [facility] [id number] 12:01:00 Test Item Value Reference Range Interpretation Comments Rh antigen (test code = 255) Positive [facility] HealthABO blood [id number] 12:01:00 Test Item Value Reference Range Interpretation Comments ABO blood group (test code = 116) O [facility]cystic fibrosis, [id number] 12:01:00 Test Item Value Reference Range Interpretation Comments cystic fibrosis, screen Comment: (test code = 02165) [facility] electrophoresis, [id number] 12:01:00 Test Item Value Reference Range Interpretation Comments hemoglobin electrophoresis, blood (test Note: code = 5693) [facility] HealthHemoglobin [id number] 12:01:00 Test Item Value Reference Range Interpretation Comments Hemoglobin Variant (test code = 89988) 0.0 % >0.0 [facility]hem[facility] [id number] 12:01:00 Test Item Value Reference Range Interpretation Comments hemoglobin A2 (test code = 2503) 2.4 % 1.8-3.2 [facility] [id number] 12:01:00 Test Item Value Reference Range Interpretation Comments hemoglobin C (test code = 2502) 0.0 % >0.0 [facility]hem[facility] [id number] 12:01:00 Test Item Value Reference Range Interpretation Comments hemoglobin S (test code = 2501) 0.0 % >0.0 [facility]hemoglobin [id number] 12:01:00 Test Item Value Reference Range Interpretation Comments hemoglobin A (test code = 2499) 97.6 % 96.4-98.8 [facility] [id number] 12:01:00 Test Item Value Reference Range Interpretation Comments hemoglobin F (test code = 2500) 0.0 % 0.0-2.0 [facility]hem[facility] solubility [id number] 12:01:00 Test Item Value Reference Range Interpretation Comments hemoglobin solubility test (test Negative Negative code = 6864-3) [facility] Healthimmature granulocytes, percentage of total cells, blood 2019-07-07 12:01:00 Test Item Value Reference Range Interpretation Comments immature granulocytes, percentage of 0 % total cells, blood (test code = 85340-0) [facility]basophil count, [id number] 12:01:00 Test Item Value Reference Range Interpretation Comments basophil count, absolute (test 0.0 x10E3/uL 0.0-0.2 code = 07688-5) [facility] HealthEosinophil Absolute [id number] 12:01:00 Test Item Value Reference Range Interpretation Comments Eosinophil Absolute Count (test 0.1 X10E3/UL 0.0-0.4 code = 22965-4) [facility]monocyte count, blood, [id number] 12:01:00 Test Item Value Reference Range Interpretation Comments monocyte count, blood, automated 0.5 X10E3/UL 0.1-0.9 (test code = 742-7) [facility]lymph[facility] count, blood, [id number] 12:01:00 Test Item Value Reference Range Interpretation Comments lymphocyte count, blood, 2.0 X10E3/UL 0.7-3.1 automated (test code = 731-0) [facility] HealthAbsolute [id number] 12:01:00 Test Item Value Reference Range Interpretation Comments Absolute Neutrophils (test code 6.7 X10E3/UL 1.4-7.0 = 97883-5) [facility]basophils as percent of blood [id number] 12:01:00 Test Item Value Reference Range Interpretation Comments basophils as percent of blood 0 % leukocytes (test code = 707-0) [facility]theosinophils as percent of blood [id number] 12:01:00 Test Item Value Reference Range Interpretation Comments eosinophils as percent of blood 1 % leukocytes (test code = 713-8) [facility]monocytes as percent of blood [id number] 12:01:00 Test Item Value Reference Range Interpretation Comments monocytes as percent of blood 6 % leukocytes (test code = 5905-5) [facility]lymphocytes as percent of blood [id number] 12:01:00 Test Item Value Reference Range Interpretation Comments lymphocytes as percent of blood 21 % leukocytes (test code = 736-9) [facility]neutrophils as percent of blood [id number] 12:01:00 Test Item Value Reference Range Interpretation Comments neutrophils as percent of blood 72 % leukocytes (test code = 770-8) [facility] Healthplatelet [id number] 12:01:00 Test Item Value Reference Range Interpretation Comments platelet count (test code = 270 X10E3/UL 150-450 777-3) [facility]red blood cell distribution [id number] 12:01:00 Test Item Value Reference Range Interpretation Comments red blood cell distribution width 14.8 % 11.7-15.4 (test code = 788-0) [facility] corpuscular hemoglobin concentration, [id number] 12:01:00 Test Item Value Reference Range Interpretation Comments mean corpuscular hemoglobin 32.9 G/DL 31.5-35.7 concentration, RBC (test code = 786-4) [facility] hemoglobin, [id number] 12:01:00 Test Item Value Reference Range Interpretation Comments mean corpuscular hemoglobin, RBC 31.3 pg 26.6-33.0 (test code = 785-6) [facility]mean corpuscular volume, [id number] 12:01:00 Test Item Value Reference Range Interpretation Comments mean corpuscular volume, RBC (test code 95 fL 79-97 = 787-2) [facility]hematocrit, [id number] 12:01:00 Test Item Value Reference Range Interpretation Comments hematocrit, blood (test code = 4544-3) 39.2 % 34.0-46.6 [facility]hemoglobin, [id number] 12:01:00 Test Item Value Reference Range Interpretation Comments hemoglobin, blood (test code = 12.9 g/dL 11.1-15.9 718-7) [facility]altherythrocyte (RBC) [id number] 12:01:00 Test Item Value Reference Range Interpretation Comments erythrocyte (RBC) count (test 4.12 X10E6/UL 3.77-5.28 code = 789-8) [facility]leukocyte count, [id number] 12:01:00 Test Item Value Reference Range Interpretation Comments leukocyte count, blood (test 9.4 X10E3/UL 3.4-10.8 code = 6690-2) [facility]alcohol, [id number] 12:01:00 Test Item Value Reference Range Interpretation Comments alcohol, urine (test code = 2458) Negative % Cutoff=0.020 [facility]phencyclidine screen, [id number] 12:01:00 Test Item Value Reference Range Interpretation Comments phencyclidine screen, urine (test Negative Cutoff=25 code = 3936-2) [facility]opiates, urine, [id number] 12:01:00 Test Item Value Reference Range Interpretation Comments opiates, urine, semiquantitative Negative Dpkhxl=346 (test code = 3879-4) [facility]cocaine, [id number] 12:01:00 Test Item Value Reference Range Interpretation Comments cocaine, urine (test code = 3292) Negative Ymxejs=693 [facility] Healthcannabinoid screen, [id number] 12:01:00 Test Item Value Reference Range Interpretation Comments cannabinoid screen, urine (test code Negative Cutoff=50 = 3426-4) [facility] Healthbenzodiazepine screen, [id number] 12:01:00 Test Item Value Reference Range Interpretation Comments benzodiazepine screen, urine (test Negative Gdmrsa=248 code = 3390-2) [facility] [id number] 12:01:00 Test Item Value Reference Range Interpretation Comments barbiturates screen, urine (test Negative Pjxohy=790 code = 2460) [facility], [id number] 12:01:00 Test Item Value Reference Range Interpretation Comments amphetamine screen, urine (test code Negative Anjqyz=8120 = 3349-8) [facility]avirus test [id number] 11:40:00 Test Item Value Reference Range Interpretation Comments Human Papillomavirus test result HPVNotTested (test code = 86895-4) [facility]eria gonorrhoeae DNA [id number] 11:39:00 Test Item Value Reference Range Interpretation Comments Neisseria gonorrhoeae DNA probe Negative Negative (test code = 82904-9) [facility] [id number] 11:39:00 Test Item Value Reference Range Interpretation Comments chlamydia DNA probe (test code = Negative Negative 75438-4) [facility] HCG, urine, [id number] 10:58:18 Test Item Value Reference Range Interpretation Comments beta HCG, urine, semiquantitative positive (test code = 2106-3) [facility]
[2020-08-11 09:29] LABS: Urine Blood Negative (Negative); Urine Glucose Negative (Negative); Urine Protein 3+ (Negative); Urine Specific Gravity >=1.030 (1.005-1.030); Urine pH 5.5 (5.0-7.0)
[2020-08-11] MEDS ORDERED: PROMETHAZINE 25 MG TABLET ONE (09:47)
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
[2020-08-11 10:11] LABS: Urine Specific Gravity/Preg >1.030 (1.005-1.030)
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
== END 2020-08-11 10:52 | disposition home or self-care (01) ==
LOC: ER 08:58
DX: S06.0X0A Concussion without loss of consciousness, initial encounter (principal); G89.11 Acute pain due to trauma; V49.40XA Driver injured in collision with unspecified motor vehicles in traffic accident, initial encounter
CPT/HCPCS: 81025; 81003; 70450; 72125; Q0169; 99284

== ENCOUNTER 2020-10-13 00:38 | Emergency (ER) | payer OTHER ==
--- OUTSIDE RECORDS SUMMARY | 2020-10-13 00:42 | XMS REPORT | Continuity of Care Document ---
:1995 Author Organization [facility] t Address [address] [place] [address] Care Team Providers Name Role Phone Pcp MD, No Primary Care Physician Unavailable Ultrasound, Ang-Mfm Attending Clinician Unavailable Freida Diaz Attending Clinician Doctor Unassigned, Name Attending Clinician Unavailable John Attending Clinician Unavailable Yenni Muller Attending Clinician Unavailable Harshad Attending Clinician [phone] Leslie Attending Clinician Unavailable Harshad Unavailable [phone] Payers Payer Name Policy Type Policy Number [...] 2019-07-07 Ravi Patricia care for 07-06 11:41:05 [facility]:00: ty transverse 00 Health previous Missed Condition Active 2019-07-07 Ravi Patricia period 07-06 11:41:05 [facility] 00:00: ty 00 Health Allergies, Adverse Reactions, Alerts Allergy Allergy Status Severity Reaction(s) Onset Inactive Treating Comm ents Source Name Type Date Date Clinician hydrocod DA Active [facility] one bit 611 Clear 00:00: Riojas 00 [facility] adhesive DA Active [facility] tape 611 Clear 00:00: Riojas 00 [facility] Hydrocod Propensi Active Other (See Angry, CH [...] Binge Medical Miriam ter Sex Assigned At [facility] time of call 2019-09-02 2019-09-02 09/02/2019 [...] Center Alcohol intake 2018-09-02 2018-09-02 Current GEORGE Gantk es - 00:00:00 00:00:00 non-drinker of Medical Ce nter alcohol (finding) History SDOH 2018-09-02 2018-09-02 1 GEORGE Gantkes - Alcohol Frequency 00:00:00 00:00:00 [facility] Center Smoking Status Start Date Stop Date Source Ex-smoker (finding) 2019-07-07 10:58:18 2019-07-07 10:58:18 [facility] Health Current every day 2018-09-02 00:00:00 [facility] Medications Ordered Filled Start Stop Current Ordering Indication Dosage Frequency Signature Comments Components Source Medication Medication Date Date Medication? Clinician (SIG) Name Name MACROBID Yes Nevin 1 tab By Lega cy (NITROFURAN 5-08 Harshad Mouth bid Communi TOIN 00:00: ty MONOHYD 00 Health MACRO) 100 MG CAPS Vital Signs Vital Name Observation Time Observation Value Comments Source oxygen saturation, 2019-07-07 10:58:18 99 % [facility] oximetry Health blood pressure, 2019-07-07 10:58:18 86 mm[Hg] [facility] diastolic [facility] blood pressure, 2019-07-07 10:58:18 107 mm[Hg] [facility] systolic Health pulse rate 2019-07-07 10:58:18 78 /min [facility] temperature site 2019-07-07 10:58:18 oral Lega cy [facility] temperature E&M 2019-07-07 10:58:18 98.9 [degF] [facility] Health weight E&M 2019-07-07 10:58:18 202.50 [lb_av] [facility] weight in kilograms 2019-07-07 10:58:18 92.05 kg L [facility] E& Health height in 2019-07-07 10:58:18 160.02 cm [facility] centimeters E&M Health Procedures Procedure Date / Time Performed [...] Medica l Center cervix (procedure) [code = 400115487] Future Scheduled [address] [facility] Test 00:00:00 (procedure) [code = Medical Center 73184120] Future Scheduled [address] [facility] - Test 00:00:00 0-64 YRS (1 of 1 - Medical C enter PPSV23) [code = PNEUMOCOCCAL VACCINE 0-64 YRS (1 of 1 - PPSV23)] Encounters Start End Encounter Admission Attending Care Care Encounter Source Date/Time Date/Time Type Type Clinicians Facility Department ID 2020-10-11 2020-10-11 [address] [facility], [facility] [id number] 13:14:13 14:29:13 Visit Rica ELECTRONICS ENGINEERING PROFESSOR 350.1.13.10 REGIONAL 4.2.7.2.686 MATERNAL [id number] & CHILD 369 [facility] 2020-09-21 2020-09-21 Routine Jesse UTPAVITHRA [id number] 14:08:25 14:31:08 Freida Pillai ELECTRONICS ENGINEERING PROFESSOR 350.1.13.10 Visit REGIONAL 4.2.7.2.686 MATERNAL [id number] & CHILD 107 [facility] 2020-08-24 2020-08-24 Routine Jesse, [facility] [id number] 14:21:18 14:50:54 Freida N ELECTRONICS ENGINEERING PROFESSOR 350.1.13.10 Visit REGIONAL 4.2.7.2.686 MATERNAL [id number] & CHILD 107 [facility] 2020-08-24 2020-08-24 Orders Doctor AGOSTO [id number] 00:00:00 00:00:00 Only Unassigned, CHEPE 350.1.13.10 [facility] 4.2.7.2.686 [id number] 009 2020-08-20 2020-08-20 [address] [facility], [facility] 1.2.840.114 [id number] 15:55:44 16:25:44 Visit Edilberto-mervat ELECTRONICS ENGINEERING PROFESSOR 350.1.13.10 REGIONAL 4.2.7.2.686 MATERNAL [id number] & CHILD 369 [facility] 2020-07-27 2020-07-27 Initial Jesse, [facility] [id number] 08:32:36 09:34:06 Freida N ELECTRONICS ENGINEERING PROFESSOR 350.1.13.10 Visit [facility] 4.2.7.2.686 MATERNAL [id number] & CHILD 107 [facility] 2020-07-27 2020-07-27 Orders Doctor AGOSTO 1.2.840.114 [id number] 00:00:00 00:00:00 Only Unassigned, CHEPE 350.1.13.10 [facility] 4.2.7.2.686 [id number] 009 2019-09-02 2019-09-02 Office Jenniffer Lopez [place] Encounter/ [facility] 00:00:00 00:00:00 Visit Nabil Muller [id number] [facility] [id number] [facility] Health [facility] 2019-08-13 2019-08-13 Office DEE Lopez Encount er/ [facility] 00:00:00 00:00:00 Visit Jenniffer [facility] [id number] [facility] ELECTRONICS ENGINEERING PROFESSOR [id number] [facility] 2019-08-13 2019-08-13 Office DEE Lopez Encount er/ [facility] 00:00:00 00:00:00 Visit Jenniffer Johns [id number] [facility] ELECTRONICS ENGINEERING PROFESSOR [id number] [facility] 2019-08-11 2019-08-11 Office DEE Lopez Encount er/ Legacy 00:00:00 00:00:00 Visit Jenniffer Johns [id number] [facility] ELECTRONICS ENGINEERING PROFESSOR [id number] [facility] 2019-08-08 2019-08-08 Office DEE Patricia [facility] Encounte r/ [facility] 00:00:00 00:00:[address] [facility] [id number] [facility] ELECTRONICS ENGINEERING PROFESSOR [id number] [facility] 2019-07-07 2019-07-07 Office DEE Patricia [facility] Encounte r/ [facility] 00:00:00 00:00:[address] [facility] [id number] [facility] ELECTRONICS ENGINEERING PROFESSOR [id number] [facility] 2019-07-07 2019-07-07 Office Nevin Patricia [facility] En counter/ [facility] 00:00:00 00:00:00 Visit Jenniffer Lopez [place] [id number] [facility] ELECTRONICS ENGINEERING PROFESSOR [id number] [facility] 2019-07-07 2019-07-07 Office DEE Patricia [facility] Encounte r/ [facility] 00:00:00 00:00:[address] [facility] [id number] [facility] ELECTRONICS ENGINEERING PROFESSOR [id number] [facility] 2019-07-07 2019-07-07 Office DEE Patriciaacy Encounte r/ [facility] 00:00:00 00:00:[address] [facility] [id number] [facility] ELECTRONICS ENGINEERING PROFESSOR [id number] [facility] 2019-07-07 2019-07-07 Office DEE Patricia [facility] Encounte r/ Legacy 00:00:00 00:00:[address] [facility] [id number] [facility] ELECTRONICS ENGINEERING PROFESSOR [id number] [facility] 2019-07-07 2019-07-07 Office Nevin Patricia Domingoacy En counter/ Legacy 00:00:00 00:00:00 Visit Christine Nelson [place] 1 [id number] Communi ELECTRONICS ENGINEERING PROFESSOR [id number] [facility] 2018-07-14 2018-07-14 Emergency E MHSE MHSE 7500 MH 19:41:00 19:41:[facility] Results Test Description Test Time Test [...] CA) 8.5 mg/dL 8.5-10.1 N HCG SERUM [id number] 13:19:00 Test Item Value Reference Range Interpretation Comments HCG SERUM BETA 44702.0 mIU/mL 0-3 H Interfering substances (test code [...] MONTH S AFTER CONCEPTION 10,000-100,000 MIU/ML URINALYSIS [id number] 13:17:00 Test Item Value Reference Range Interpretation [...] Urine Source? Clean Catch- US PREG AFTER [id number] 13:04:00 Name: DENISE RUBIO [facility] : 1995 Age/S: 24 / F [address] [facility] Unit #: [id number] Loc: [place] [address] Phys: Chalo Kothari SUPERVISOR [employer] Acct: [id number] Dis Date: Status: REG ER PHONE #: [phone] Exam Date: 09/11/2019 1244 FAX #: [phone] Reason: PELVIC PAIN-RIGHT EXAMS: CPTCODE: [id number] US PREG AFTER TRI 60314 HISTORY: Pel justin pain. COMPARISON: None available. Location: [facility]. ultrasound: Survey of the uterus demonstrating single live intrauterine gestation in variable position. Cardiac activity documented with average heart rate of 162 beats per minutes. Posterior, grade 0 placenta. No previa. No retroplacental hemorrhage noted. Cervical length of 4 cm. Normal amniotic fluid volume. [place]-rump length of 8.8 cm would equal 14 [...] CC: Chalo Kothari NP Technologist: LACY SCOTT RT(R),RDDC Trnscb Date/Time: 09/11/2019 (6713) t.MAAMER.TH4 Orig Print D/T: S: 09/11/2019 (8179) Probe: PAGE 1 Signed Report- DUP AB/PEL/SC [id number] 13:04:00 Name: DENISE RUBIO [facility] : 1995 Age/S: 24 / F [address] [facility] Unit #: [id number] Loc: [place] [address] Phys: Chalo Kothari SUPERVISOR [employer]AR[employer] Acct: [id number] Dis Date: Status: REG ER PHONE #: [phone] Exam Date: 09/11/2019 1200 FAX #: [phone] Reason: PELVIC PAIN EXAMS: CPTCODE: [id number] DUP AB/PEL/SC COMP 23670 HISTORY: Pelvic pain. COMPARISON: None available. Location: [facility]. ultrasound: Survey of the uterus demonstrating single live intrauterine gestation in variable position. Cardiac activity documented with average heart rate of 162 beats per minutes. Posterior, grade 0 placenta. No previa. No retroplacental hemorrhage noted. Cervical length of 4 cm. Normal amniotic fluid volume. [place]-rump length of 8.8 cm would equal 14 weeks 5 days +/- 1 week. LUIS of March 06, 2020. LUIS by outside [facility] ound of March 03, 2020. Color and [...] CC: Chalo Kothari NP Technologist: LACY SCOTT RT(R),[facility] Trnwib Date/Time: 09/11/2019 (8454) t.SDR.TH4 Orig Print D/T: S: 09/11/2019 (2583) Probe: PAGE 1 Signed ReportUR HCG [id number] 12:59:00 Test Item Value Reference Range Interpretation Comments UR HCG QUAL (test POSITIVE This HCGQ L test is NOT code = HCGQLU) applicable fo r MALE patients.Check with nurse about probable order error.If Tumor Marker Test needed, nu rse should order test "HCG TU"(Test #550.94048)---- - CBC W/O [id number] 12:58:00 Test Item Value Reference Range Interpretation [...] fL 6.7-11.0 H = MPV) BASIC METABOLIC [id number] 12:53:00 Test Item Value Reference Range Interpretation [...] code = CA) mg/dL 8.5-10.1 HCG SERUM [id number] 12:53:00 Test Item Value Reference Range Interpretation Comments HCG SERUM BETA (test code = HCG) mIU/mL 0-3 red blood cell distribution [id number] 12:01:00 Test Item Value Reference Range Interpretation Comments red blood cell distribution width 14.8 % 11.7-15.4 (test code = 788-0) [facility] corpuscular hemoglobin concentration, [id number] 12:01:00 Test Item Value Reference Range Interpretation Comments mean corpuscular hemoglobin 32.9 G/DL 31.5-35.7 concentration, RBC (test code = 786-4) [facility], [id number] 12:01:00 Test Item Value Reference Range Interpretation Comments mean corpuscular hemoglobin, RBC 31.3 pg 26.6-33.0 (test code = 785-6) [facility], [id number] 12:01:00 Test Item Value Reference Range Interpretation Comments mean corpuscular volume, RBC (test code 95 fL 79-97 = 787-2) [facility], [id number] 12:01:00 Test Item Value Reference Range Interpretation Comments hematocrit, blood (test code = 4544-3) 39.2 % 34.0-46.6 [facility], [id number] 12:01:00 Test Item Value Reference Range Interpretation Comments hemoglobin, blood (test code = 12.9 g/dL 11.1-15.9 718-7) [facility] (RBC) [id number] 12:01:00 Test Item Value Reference Range Interpretation Comments erythrocyte (RBC) count (test 4.12 X10E6/UL 3.77-5.28 code = 789-8) [facility]leuk[facility] count, [id number] 12:01:00 Test Item Value Reference Range Interpretation Comments leukocyte count, blood (test 9.4 X10E3/UL 3.4-10.8 code = 6690-2) [facility]alcohol, [id number] 12:01:00 Test Item Value Reference Range Interpretation Comments alcohol, urine (test code = 2458) Negative % Cutoff=0.020 [facility]phencyclidine screen, [id number] 12:01:00 Test Item Value Reference Range Interpretation Comments phencyclidine screen, urine (test Negative Cutoff=25 code = 3936-2) [facility]opiates, urine, [id number] 12:01:00 Test Item Value Reference Range Interpretation Comments opiates, urine, semiquantitative Negative Iejukr=090 (test code = 3879-4) [facility]cocaine, [id number] 12:01:00 Test Item Value Reference Range Interpretation Comments cocaine, urine (test code = 3292) Negative Dwguum=567 [facility] Hospitalcannabinoid screen, [id number] 12:01:00 Test Item Value Reference Range Interpretation Comments cannabinoid screen, urine (test code Negative Cutoff=50 = 3426-4) [facility]odiazepine screen, [id number] 12:01:00 Test Item Value Reference Range Interpretation Comments benzodiazepine screen, urine (test Negative Pthluf=131 code = 3390-2) [facility] Hospitalbarbiturates screen, [id number] 12:01:00 Test Item Value Reference Range Interpretation Comments barbiturates screen, urine (test Negative Pbfhbo=639 code = 2460) [facility] Hospitalamphetamine screen, [id number] 12:01:00 Test Item Value Reference Range Interpretation Comments amphetamine screen, urine (test code Negative Jizfzx=4717 = 3349-8) [facility] Hospitalurine [id number] 12:01:00 Test Item Value Reference Range Interpretation Comments urine culture (test code Klebsiella aerogenes A = 630-4) [facility] Hospitalhepatitis B surface [id number] 12:01:00 Test Item Value Reference Range Interpretation Comments hepatitis B surface antigen (test Negative Negative code = 79) [facility]progesterone, [id number] 12:01:00 Test Item Value Reference Range Interpretation Comments progesterone, serum (test code = 20.7 ng/mL 292) [facility] [id number] 12:01:00 Test Item Value Reference Range Interpretation Comments Rh antibody (test code = 256) Negative Negative [facility] HospitalHIV-CMIA (Chemiluminescent Microparticle Immuno Assay) 2019-07-07 12:01:00 Test Item Value Reference Range Interpretation Comments HIV-CMIA (Chemiluminescent Non Reactive Non Reactive Microparticle Immuno Assay) (test code = 862834) [facility] reagin antibody, [id number] 12:01:00 Test Item Value Reference Range Interpretation Comments rapid plasma reagin antibody, Non Reactive Non Reactive serum (test code = 5291-0) [facility], total, [id number] 12:01:00 Test Item Value Reference Range Interpretation Comments human chorionic gonadotropin, 53225 m[iU]/mL total, serum (test code = 3386) [facility] [id number] 12:01:00 Test Item Value Reference Range Interpretation Comments Rh antigen (test code = 255) Positive [facility] HospitalABO blood [id number] 12:01:00 Test Item Value Reference Range Interpretation Comments ABO blood group (test code = 116) O [facility] Hospitalcystic fibrosis, [id number] 12:01:00 Test Item Value Reference Range Interpretation Comments cystic fibrosis, screen Comment: (test code = 74166) [facility] Hospitalhemoglobin electrophoresis, [id number] 12:01:00 Test Item Value Reference Range Interpretation Comments hemoglobin electrophoresis, blood (test Note: code = 5693) [facility] HospitalHemoglobin [id number] 12:01:00 Test Item Value Reference Range Interpretation Comments Hemoglobin Variant (test code = 05164) 0.0 % >0.0 [facility]hem[facility] [id number] 12:01:00 Test Item Value Reference Range Interpretation Comments hemoglobin A2 (test code = 2503) 2.4 % 1.8-3.2 [facility]hem[facility] [id number] 12:01:00 Test Item Value Reference Range Interpretation Comments hemoglobin C (test code = 2502) 0.0 % >0.0 [facility]hem[facility] [id number] 12:01:00 Test Item Value Reference Range Interpretation Comments hemoglobin S (test code = 2501) 0.0 % >0.0 [facility] Hospitalhemoglobin [id number] 12:01:00 Test Item Value Reference Range Interpretation Comments hemoglobin A (test code = 2499) 97.6 % 96.4-98.8 [facility]hem[facility] [id number] 12:01:00 Test Item Value Reference Range Interpretation Comments hemoglobin F (test code = 2500) 0.0 % 0.0-2.0 [facility]hemoglobin solubility [id number] 12:01:00 Test Item Value Reference Range Interpretation Comments hemoglobin solubility test (test Negative Negative code = 6864-3) [facility] Hospitalimmature granulocytes, percentage of total cells, blood 2019-07-07 12:01:00 Test Item Value Reference Range Interpretation Comments immature granulocytes, percentage of 0 % total cells, blood (test code = 69323-1) [facility] Hospitalbasophil count, [id number] 12:01:00 Test Item Value Reference Range Interpretation Comments basophil count, absolute (test 0.0 x10E3/uL 0.0-0.2 code = 32559-9) [facility] HealthEosinophil Absolute [id number] 12:01:00 Test Item Value Reference Range Interpretation Comments Eosinophil Absolute Count (test 0.1 X10E3/UL 0.0-0.4 code = 51201-7) [facility] Hospitalmonocyte count, blood, [id number] 12:01:00 Test Item Value Reference Range Interpretation Comments monocyte count, blood, automated 0.5 X10E3/UL 0.1-0.9 (test code = 742-7) [facility]allymph[facility] count, blood, [id number] 12:01:00 Test Item Value Reference Range Interpretation Comments lymphocyte count, blood, 2.0 X10E3/UL 0.7-3.1 automated (test code = 731-0) [facility] HospitalAbsolute [id number] 12:01:00 Test Item Value Reference Range Interpretation Comments Absolute Neutrophils (test code 6.7 X10E3/UL 1.4-7.0 = 57828-4) [facility] Hospitalbasophils as percent of blood [id number] 12:01:00 Test Item Value Reference Range Interpretation Comments basophils as percent of blood 0 % leukocytes (test code = 707-0) [facility] Hospitaleosinophils as percent of blood [id number] 12:01:00 Test Item Value Reference Range Interpretation Comments eosinophils as percent of blood 1 % leukocytes (test code = 713-8) [facility] Healthmonocytes as percent of blood [id number] 12:01:00 Test Item Value Reference Range Interpretation Comments monocytes as percent of blood 6 % leukocytes (test code = 5905-5) [facility] Hospitallymphocytes as percent of blood [id number] 12:01:00 Test Item Value Reference Range Interpretation Comments lymphocytes as percent of blood 21 % leukocytes (test code = 736-9) [facility] Hospitalneutrophils as percent of blood [id number] 12:01:00 Test Item Value Reference Range Interpretation Comments neutrophils as percent of blood 72 % leukocytes (test code = 770-8) [facility] Hospitalplatelet [id number] 12:01:00 Test Item Value Reference Range Interpretation Comments platelet count (test code = 270 X10E3/UL 150-450 777-3) [facility] HospitalHuman Papillomavirus test [id number] 11:40:00 Test Item Value Reference Range Interpretation Comments Human Papillomavirus test result HPVNotTested (test code = 34456-7) [facility] HospitalNeisseria gonorrhoeae DNA [id number] 11:39:00 Test Item Value Reference Range Interpretation Comments Neisseria gonorrhoeae DNA probe Negative Negative (test code = 85556-9) [facility] Hospitalchlamydia DNA [id number] 11:39:00 Test Item Value Reference Range Interpretation Comments chlamydia DNA probe (test code = Negative Negative 89209-9) [facility] Hospitalbeta HCG, urine, rrwbpkflipigjlkr9437-93-06 10:58:18 Test Item Value Reference Range Interpretation Comments beta HCG, urine, semiquantitative positive (test code = 2106-3) [facility]
[2020-10-13 01:10] LABS: Urine Blood 2+ (Negative); Urine Glucose Negative (Negative); Urine Protein 2+ (Negative); Urine pH 6.5 (5.0-7.0)
[2020-10-13] MEDS ORDERED: NA CHLORIDE 0.9% 1,000 ML ONE ×2 (01:24→03:01)
[2020-10-13 01:41] LABS: Absolute Lymphocytes (CBC) 1.5 K/uL (0.7-4.9); Basophils % 0.2 % (0-1.3); Hematocrit 34.6 % (36.0-45.0); Lymphocytes % 10.8 % (15.3-44.8); MPV 9.7 fL (7.6-11.3); RBC Red Blood Cell Count 3.73 M/uL (3.86-4.86)
[2020-10-13] MEDS ORDERED: CEFTRIAXONE/SWI 1gm 1 GM/10 ML SYR ONE (01:47)
[2020-10-13 01:49] LABS: BUN Blood Urea Nitrogen 7 mg/dL (7-18); Bicarbonate 25 mmol/L (21-32); Glucose Level 96 mg/dL (74-106); Potassium 3.9 mmol/L (3.5-5.1); Sodium Level 139 mmol/L (136-145)
[2020-10-13] MEDS ORDERED: ONDANSETRON 4 MG/2 ML VIAL ONE (03:01)
[2020-10-13] MEDS ORDERED: MORPHINE 2 MG/ML SYR ONE (03:01)
[2020-10-13] MEDS ORDERED: AMOX/K CLAV 875 MG TAB ONE (03:09)
--- NOTE | 2020-10-13 04:07 | ER ---
Nurse's Notes [facility] Name: Denise Mistry Age: 25 yrs Sex: Female : 1995 Arrival Date: 10/13/2020 Time: 00:41 Bed 5 Private MD: Diagnosis: UTI/ Urinary tract infection, site not specified;17 weeks gestation of ;Hematuria, unspecified Presentation: 10/13 00:48 Chief complaint: Patient states: on her way to dinner her back started hurting she bb thought it was because she was but the pain has gotten worse she is nauseous the pain radiates from a point in her back to her lower abdomen. Coronavirus screen: At this time, the client does not indicate any symptoms associated with coronavirus-19. Ebola Screen: No symptoms or risks identified at this time. Initial Sepsis Screen: Does the patient meet any 2 criteria? No. Patient's initial sepsis screen is negative. Does the patient have a suspected source of infection? No. Patient's initial sepsis screen is negative. Risk Assessment: Do you want to hurt yourself or someone else? Patient reports no desire to harm self or others. Onset of symptoms was October 12, 2020. 00:48 Method Of Arrival: Wheelchair bb 00:48 Acuity: ELLE 3 bb Triage Assessment: 00:50 General: Appears uncomfortable, Behavior is calm, cooperative. Pain: Complains of pain bb in back Pain currently is 8 out of 10 on a pain scale. Neuro: Level of Consciousness is awake, alert, obeys commands, Oriented to person, place, time, situation. Cardiovascular: Capillary refill < 3 seconds Patient's skin is warm and dry. Respiratory: Airway is patent Respiratory effort is even, unlabored, Respiratory pattern is regular. GI: Reports lower abdominal pain. : Denies burning with urination. Musculoskeletal: Circulation, motion, and sensation intact. PARK GUARD: 00:50 4, Full Term 3, Living 3, LMP 05/2019 bb 02:27 2, Full Term 1, Premature 0, 0, Living 1 johnnie Historical: - Allergies: 00:50 Adhesives; bb - Home Meds: 00:50 Vitamin Oral [Active]; bb - PMHx: 00:50 None; bb - PSHx: 00:50 section; bb - Immunization history:: Adult Immunizations up to date. - Social history:: Smoking status: Patient reports the use of cigarette tobacco products, smokes one-half pack cigarettes per day. - Family history:: not pertinent. Screenin:19 Abuse screen: Denies threats or abuse. Denies injuries from another. Nutritional jm8 screening: No deficits noted. Tuberculosis screening: No symptoms or risk factors identified. 01:19 Fall Risk None identified. jm8 Vital Signs: 00:48 BP 118 / 76; Pulse 96; Resp 16 S; Temp 98.1(O); Pulse Ox 9% on R/A; Weight 90.72 kg bb (R); Height 5 ft. 3 in. (160.02 cm) (R); Pain 8/10; 04:33 BP 119 / 68; Pulse 89; Resp 16; Pulse Ox 100% on R/A; jm8 00:48 Body Mass Index 35.43 (90.72 kg, 160.02 cm) bb ED Course: 00:41 Patient arrived in ED. wm 00:50 Triage completed. bb 00:50 Arm band placed on. Family accompanied patient. bb 00:54 Shashi Hyatt MD is Attending Physician. johnnie 01:19 Patient has correct armband on for positive identification. Bed in low position. Call jm8 light in reach. Side rails up X2. Adult w/ patient. 01:52 Inserted saline lock: 20 gauge in right antecubital area, using aseptic technique. jm8 04:34 No provider procedures requiring assistance completed. IV discontinued, intact. jm8 Administered Medications: 01:18 Drug: NS 0.9% 1000 ml Route: IV; Rate: 1 bolus; Site: right antecubital; jm8 04:33 Follow up: IV Status: Completed infusion jm8 01:32 Drug: Rocephin (cefTRIAXone) 1 grams Route: IV; Rate: per protocol; Site: right 8 antecubital; 04:33 Follow up: Response: No adverse reaction; IV Status: Completed infusion jm8 02:43 Drug: NS 0.9% 1000 ml Route: IV; Rate: 1 bolus; Site: right antecubital; jm8 04:33 Follow up: IV Status: Completed infusion jm8 02:43 Drug: morphine 2 mg Route: IVP; Site: right antecubital; jm8 04:33 Follow up: Response: No adverse reaction 8 02:43 Drug: Zofran (Ondansetron) 4 mg Route: IVP; Site: right antecubital; 8 04:32 Follow up: Response: No adverse reaction [facility] 02:50 Drug: Augmentin (Amoxicillin-Clavulanate) 875 mg Route: PO; 8 04:32 Follow up: Response: No adverse reaction [facility] Outcome: 04:07 Discharge ordered by MD. blair 04:34 Discharged to home ambulatory. [facility] 04:34 Condition: good 04:34 Discharge instructions given to patient, Instructed on discharge instructions, follow up and referral plans. medication usage, Demonstrated understanding of instructions, follow-up care, medications, Prescriptions given X 2. 04:37 Patient left the ED. jm8 Addendum: 10/16/2020 07:17 Addendum: Culture Results: Positive urine culture. No further action required. Bacteria e b sensitive to prescribed antibiotic. Signatures: Shashi Hyatt MD MD cha Ballard, Brenda, RN RN Sherie Ricardo Joseph, RN RN Francheska Chowdhury
--- NOTE | 2020-10-13 04:07 | EDPHYS ---
Physician Documentation [facility] Name: Denise Mistry Age: 25 yrs Sex: Female : 1995 Arrival Date: 10/13/2020 Time: 00:41 Bed 5 Private MD: JAYDON Physician Shashi Hyatt HPI: 10/13 02:27 This 25 yrs old Female presents to ER via Wheelchair with complaints of Low johnnie Back Pain - 17 WEEKS . 02:27 The patient presents with pain and decreased range of motion, and an injury. The johnnie symptoms are located in the right low back. The pain radiates to the right low back. The problem was sustained from unknown cause. Onset: The symptoms/episode began/occurred just prior to arrival. Modifying factors: The patient symptoms are alleviated by remaining still, the patient symptoms are aggravated by any movement. Associated signs and symptoms: Pertinent positives: dysuria. Severity of symptoms: At their worst the symptoms were moderate, in the emergency department the symptoms are unchanged. The patient has not experienced similar symptoms in the past. 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 - Social history:: Smoking status: Patient reports the use of cigarette tobacco products, smokes one-half pack cigarettes per day. - Family history:: not pertinent. ROS: 02:27 Constitutional: Negative for fever, chills, and weight loss, Eyes: Negative for injury, johnnie pain, redness, and discharge, ENT: Negative for injury, pain, and discharge, Neck: Negative for injury, pain, and swelling, Cardiovascular: Negative for chest pain, palpitations, and edema, Respiratory: Negative for shortness of breath, cough, wheezing, and pleuritic chest pain, : Negative for injury, bleeding, discharge, and swelling, MS/Extremity: Negative for injury and deformity, Skin: Negative for injury, rash, and discoloration, Neuro: Negative for headache, weakness, numbness, tingling, and seizure, Psych: Negative for depression, anxiety, suicide ideation, homicidal ideation, and hallucinations, Allergy/Immunology: Negative for hives, rash, and allergies, Endocrine: Negative for neck swelling, polydipsia, polyuria, polyphagia, and marked weight changes, Hematologic/Lymphatic: Negative for swollen nodes, abnormal bleeding, and unusual bruising. 02:27 Abdomen/GI: Positive for abdominal pain, of the posterior aspect of right lateral abdomen, anterior aspect of right lateral abdomen and right lower quadrant. 02:27 Back: Positive for decreased range of motion, pain at rest, pain with movement, of the right low back. Exam: 02:27 Constitutional: This is a well developed, well nourished patient who is awake, alert, johnnie and in no acute distress. Head/Face: Normocephalic, atraumatic. Eyes: Pupils equal round and reactive to light, extra-ocular motions intact. Lids and lashes normal. Conjunctiva and sclera are non-icteric and not injected. Cornea within normal limits. Periorbital areas with no swelling, redness, or edema. ENT: Nares patent. No nasal discharge, no septal abnormalities noted. Tympanic membranes are normal and external auditory canals are clear. Oropharynx with no redness, swelling, or masses, exudates, or evidence of obstruction, uvula midline. Mucous membranes moist. Neck: Trachea midline, no thyromegaly or masses palpated, and no cervical lymphadenopathy. Supple, full range of motion without nuchal rigidity, or vertebral point tenderness. No Meningismus. Chest/axilla: Normal chest wall appearance and motion. Nontender with no deformity. No lesions are appreciated. Cardiovascular: Regular rate and rhythm with a normal S1 and S2. No gallops, murmurs, or rubs. Normal PMI, no JVD. No pulse deficits. Respiratory: Lungs have equal breath sounds bilaterally, clear to auscultation and percussion. No rales, rhonchi or wheezes noted. No increased work of breathing, no retractions or nasal flaring. Abdomen/GI: Soft, non-tender, with normal bowel sounds. No distension or tympany. No guarding or rebound. No evidence of tenderness throughout. Skin: Warm, dry with normal turgor. Normal color with no rashes, no lesions, and no evidence of cellulitis. MS/ Extremity: Pulses equal, no cyanosis. Neurovascular intact. Full, normal range of motion. Neuro: Awake and alert, GCS 15, oriented to person, place, time, and situation. Cranial nerves II-XII grossly intact. Motor strength 5/5 in all extremities. Sensory grossly intact. Cerebellar exam normal. Normal gait. Psych: Awake, alert, with orientation to person, place and time. Behavior, mood, and affect are within normal limits. 02:27 Back: pain, that is mild, that is moderate, of the right low back, ROM is painful, normal spinal alignment noted, CVA tenderness, is absent, muscle spasm, is not present. Vital Signs: 00:48 BP 118 / 76; Pulse 96; Resp 16 S; Temp 98.1(O); Pulse Ox 9% on R/A; Weight 90.72 kg bb (R); Height 5 ft. 3 in. (160.02 cm) (R); Pain 8/10; 04:33 BP 119 / 68; Pulse 89; Resp 16; Pulse Ox 100% on R/A; jm8 00:48 Body Mass Index 35.43 (90.72 kg, 160.02 cm) bb MDM: 00:54 Patient medically screened. [facility] 02:30 Differential diagnosis: arthritis, strain, sciatica, contusion, UTI. Data reviewed: [facility] vital signs, nurses notes, lab test result(s), CBC, electrolytes, urinalysis. Data interpreted: surveillance monitor: not applicable for this patient encounter. rate is 96 beats/min, rhythm is regular, Pulse oximetry: on room air is 99 %. Test interpretation: by ED physician or midlevel provider:. Counseling: I had a detailed discussion with the patient and/or guardian regarding: the historical points, exam findings, and any diagnostic results supporting the discharge/admit diagnosis, lab results, the need for outpatient follow up, for definitive care, an OB/Gyne specialist. 10/13 00:55 Order name: Abo/rh Typing; Complete Time: 02:01 johnnie 10/13 00:55 Order name: Basic Metabolic Panel; Complete Time: 02:01 johnnie 10/13 00:55 Order name: CBC with Diff; Complete Time: 02: [facility] 10/13 00:55 Order name: Urine Culture [facility] 10/13 01:10 Order name: Urine Dipstick-Ancillary; Complete Time: 02:01 EDMS 10/13 01:16 Order name: Urine --Ancillary (enter results); Complete Time: 02: 2 10/13 00:55 Order name: IV Saline Lock; Complete Time: : [facility] 10/13 00:55 Order name: Labs collected and sent; Complete Time: 01: [facility] 10/13 00:55 Order name: NPO; Complete Time: : [facility] 10/13 00:55 Order name: Urine Dipstick-Ancillary (obtain specimen); Complete Time: : [facility] 10/13 00:55 Order name: Urine Test (obtain specimen); Complete Time: : [facility] 10/13 00:55 Order name: FHT's; Complete Time: 04:27 johnnie Administered Medications: 01:18 Drug: NS 0.9% 1000 ml Route: IV; Rate: 1 bolus; Site: right antecubital; jm8 04:33 Follow up: IV Status: Completed infusion jm8 01:32 Drug: Rocephin (cefTRIAXone) 1 grams Route: IV; Rate: per protocol; Site: right 8 antecubital; 04:33 Follow up: Response: No adverse reaction; IV Status: Completed infusion jm8 02:43 Drug: NS 0.9% 1000 ml Route: IV; Rate: 1 bolus; Site: right antecubital; jm8 04:33 Follow up: IV Status: Completed infusion jm8 02:43 Drug: morphine 2 mg Route: IVP; Site: right antecubital; jm8 04:33 Follow up: Response: No adverse reaction jm8 02:43 Drug: Zofran (Ondansetron) 4 mg Route: IVP; Site: right antecubital; jm8 04:32 Follow up: Response: No adverse reaction jm8 02:50 Drug: Augmentin (Amoxicillin-Clavulanate) 875 mg Route: PO; jm8 04:32 Follow up: Response: No adverse reaction jm8 Disposition Summary: 10/13/20 04:07 Discharge Ordered Location: Home johnnie Problem: new johnnie Symptoms: have improved johnnie Condition: Stable johnnie Diagnosis - UTI/ Urinary tract infection, site not specified johnnie - 17 weeks gestation of johnnie - Hematuria, unspecified johnnie Followup: johnnie - With: Private Physician - When: 1 - 2 days - Reason: Recheck today's complaints, Continuance of care, Re-evaluation by your physician Discharge Instructions: - Discharge Summary Sheet johnnie - Dysuria johnnie - Care johnnie - Urinary Tract Infection, Adult johnnie - Hematuria, Adult johnnie - Kidney Stones johnnie - Urinary Tract Infection, Adult, [id number] johnnie - Kidney Stones, [id number] johnnie Forms: - Medication Reconciliation Form johnnie - Thank You Letter johnnie - Antibiotic Education johnnie - Prescription Opioid Use johnnie - Work release form jm8 Prescriptions: - codeine sulfate 30 mg Oral tablet - take 2 tablet by ORAL route every 4-6 hours; 24 tablet; Refills: 0, Product [facility] Selection Permitted - Augmentin 875-125 mg Oral Tablet - take 1 tablet by ORAL route every 12 hours for 10 days; 20 tablet; Refills: 0, [facility] Product Selection Permitted Signatures: Dispatcher [employer] Shashi Hernandes MD MD cha Ballard, Brenda, RN Mehran Merino RN LINUS jm8
[2020-10-13 07:16] VITALS: TEMP 98.1
[2020-10-13 07:17] VITALS: BP 119/68; O2SAT 100
== END 2020-10-13 04:37 | disposition home or self-care (01) ==
LOC: ER 00:38
DX: O23.42 Unspecified infection of urinary tract in pregnancy, second trimester (principal); O99.332 Smoking (tobacco) complicating pregnancy, second trimester; Z3A.17 17 weeks gestation of pregnancy; F17.210 Nicotine dependence, cigarettes, uncomplicated; Z91.048 Other nonmedicinal substance allergy status
CPT/HCPCS: 96365; 87088; 85025; 87086; 80048; 36415; 86900; 81025; 86901; 87077; 87186; 81003; 96375; 99283; 96366; J2270; J0696; J7030 ×2; J2405

== ENCOUNTER 2024-12-20 14:36 | Emergency (ER) | payer OTHER, SELFPAY ==
--- OUTSIDE RECORDS SUMMARY | 2024-12-20 14:41 | XMS REPORT | Continuity of Care Document ---
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 [...] Doppler flow in right ovary. Left ovary is not seen. at 1304 Reported and signed by: Cy Mack M.D. CC: Chalo Kothari SEARCH CONSULTANT Technologist: LACY SCOTT RT(R),RDMS Trnscb Date/Time: 09/11/2019 (8399) t.TH4 Orig Print D/T: S: 09/11/2019 (9292) Probe: PAGE 1 Signed Report- DUP AB/PEL/SC [id number] 13:04:00Name: DENISE RUBIO [facility] : 1995 Age/S: 24 / F [address] [facility] Unit #: [id number] Loc: [place] [address] Phys: Chalo Kothari SEARCH CONSULTANT Acct: [id number] Dis Date: Status: REG ER PHONE #: [phone] Exam Date: 09/11/2019 1200 FAX #: [phone] Reason: PELVIC PAIN EXAMS: CPT CODE: [id number] DUP AB/PEL/SC COMP 26490 HISTORY: Pelvic pain. COMPARISON: None available. Location: [facility]. ultrasound: Survey of the uterus demonstrating single live intrauterine gestation in variable position. Cardiac activity documented with average heart rate of 162 beats per minutes. Posterior, grade 0 placenta. No previa. No retroplacental hemorrhage noted. Cervical length of 4 cm. Normal amniotic fluid volume. [place]-rump length of 8.8 cm would equal 14 weeks 5 days +/- [facility] of March 03, 2020. Color and Doppler flow in right ovary with normal spectral waveform. Right ovary measured 2.4 x 2 x 2.2 cm and left ovary is not seen.IMPRESSION: Single live intrauterine gestation in variable position at 14 weeks 5 days +/- 1 week with average heart rate of 162 beats per minutes. LUIS of March 06, 2020. Posterior, grade 0 placenta without previa or retroplacental hemorrhage. Normal amniotic fluid volume. Color Doppler flow in right ovary. Left ovary is not seen. at 1304 Reported and signed by: Cy Mack M.D. CC: Chalo Kothari NP Technologist: LACY SCOTT RT(R),RDMS Trnscb Date/Time: 09/11/2019 (1110) [id number] Orig Print D/T: S: 09/11/2019 (5645) Probe: PAGE 1 Signed ReportUR HCG [id number] 12:59:00* Test Item Value Reference Range Interpretation Comme nts UR HCG QUAL (test code = HCGQLU) POSITIVE This HCGQL test is NOT applicable for MALE patients.Check with nurse about probable order error.If Tumor Marker Test needed, nurse should order test "HCGTU"(Test #[id number]) CBC W/O [id number] 12:58:00* Test Item Value Reference Range Interpretation Comme nts WHITE BLOOD CELL (test code = WBC) 11.9 K/mm3 4.5-12.5 N RED BLOOD CELL (test code = RBC) 4.01 mill/mm3 3.7-5.2 N HEMOGLOBIN (test code = HGB) 12.5 gram/dL 11.5-15.5 N HEMATOCRIT (test code = HCT) 36.4 % 36.0-46.0 N MEAN CELL VOLUME (test code = MCV) 90.8 fL 80-98 N MEAN CELL HGB (test code = MCH) 31.2 picogram 27.0-33.0 N MEAN CELL HGB CONCETRATION (test code = MCHC) 34.3 gram/dL 33.0-36.0 N RED CELL DISTRIBUTION WIDTH (test code = RDW) 12.9 % 11.6-16.2 N PLATELET COUNT (test code = PLT) 238 K/mm3 150-450 N MEAN PLATELET VOLUME (test c ode = MPV) 11.7 fL 6.7-11.0 H BASIC METABOLIC [id number] 12:53:00* Test Item Value Reference Range Interpretation Comme nts SODIUM (test code = NA) 137 mmol/L 136-145 N POTASSIUM (test code = K) 3.6 mmol/L 3.5-5.1 N CHLORIDE (test code = CL) 106.0 mmol/L 98-107 N CARBON DIOXIDE (test code = CO2) mmol/L 21-32 ANION GAP (test code = GAP) 10-20 GLUCOSE (test code = GLU) mg/dL 74-106 BLOOD UREA NITROGEN (test co de = BUN) mg/dL 7-18 GLOMERULAR FILTRATION RATE ( test code = GFR) mL/min >=60 CREATININE (test code = CREAT) mg/dL 0.55-1.02 BUN/CREATININE RATIO (test c ode = BUN/CREA) 10-20 CALCIUM (test code = CA) mg/dL 8.5-10.1 HCG SERUM [id number] 12:53:00* Test Item Value Reference Range Interpretation Comme nts HCG SERUM BETA (test code = HCG) mIU/mL 0-3 hemoglobin [id number] 12:01:00* Test Item Value Reference Range Interpretation Comme nts hemoglobin C (test code = 2502) 0.0 % >0.0 [facility] [id number] 12:01:00* Test Item Value Reference Range Interpretation Comme nts hemoglobin S (test code = 2501) 0.0 % >0.0 [facility] [id number] 12:01:00* Test Item Value Reference Range Interpretation Comme nts hemoglobin A (test code = 2499) 97.6 % 96.4-98.8 [facility] [id number] 12:01:00* Test Item Value Reference Range Interpretation Comme nts hemoglobin F (test code = 2500) 0.0 % 0.0-2.0 [facility] solubility [id number] 12:01:00* Test Item Value Reference Range Interpretation Comme nts hemoglobin solubility test ( test code = 6864-3) Negative Negative [facility] Centerimmature granulocytes, percentage of total cells, blood 2019-07-07 12:01:00* Test Item Value Reference Range Interpretation Comme nts immature granulocytes, perce ntage of total cells, blood (test code = 56453-6) 0 % [facility]basophil count, [id number] 12:01:00* Test Item Value Reference Range Interpretation Comme nts basophil count, absolute (te st code = 81030-7) 0.0 x10E3/uL 0.0-0.2 [facility] HealthEosinophil Absolute [id number] 12:01:00* Test Item Value Reference Range Interpretation Comme nts Eosinophil Absolute Count (t est code = 98830-3) 0.1 X10E3/UL 0.0-0.4 [facility] Healthmonocyte count, blood, [id number] 12:01:00* Test Item Value Reference Range Interpretation Comme nts monocyte count, blood, autom ated (test code = 742-7) 0.5 X10E3/UL 0.1-0.9 [facility] Healthlymphocyte count, blood, [id number] 12:01:00* Test Item Value Reference Range Interpretation Comme nts lymphocyte count, blood, automated (test code = 731-0) 2.0 X10E3/UL 0.7-3.1 [facility] HealthAbsolute [id number] 12:01:00* Test Item Value Reference Range Interpretation Comme nts Absolute Neutrophils (test c ode = 50879-7) 6.7 X10E3/UL 1.4-7.0 [facility] Healthbasophils as percent of blood [id number] 12:01:00* Test Item Value Reference Range Interpretation Comme nts basophils as percent of bloo d leukocytes (test code = 707-0) 0 % [facility] Healtheosinophils as percent of blood [id number] 12:01:00* Test Item Value Reference Range Interpretation Comme nts eosinophils as percent of bl ood leukocytes (test code = 713-8) 1 % [facility] Healthmonocytes as percent of blood vuukvmjfno6179-58-04 12:01:00* Test Item Value Reference Range Interpretation Comme nts monocytes as percent of bloo d leukocytes (test code = 5905-5) 6 % [facility] Healthlymphocytes as percent of blood [id number] 12:01:00* Test Item Value Reference Range Interpretation Comme nts lymphocytes as percent of bl ood leukocytes (test code = 736-9) 21 % [facility] Healthneutrophils as percent of blood [id number] 12:01:00* Test Item Value Reference Range Interpretation Comme nts neutrophils as percent of bl ood leukocytes (test code = 770-8) 72 % [facility] Centerplatelet [id number] 12:01:00* Test Item Value Reference Range Interpretation Comme nts platelet count (test code = 777-3) 270 X10E3/UL 150-450 [facility]red blood cell distribution [id number] 12:01:00* Test Item Value Reference Range Interpretation Comme [facility] red blood cell distribution width (test code = 788-0) 14.8 % 11.7-15.4 [facility] corpuscular hemoglobin concentration, [id number] 12:01:00* Test Item Value Reference Range Interpretation Comme nts mean corpuscular hemoglobin concentration, RBC (test code = 786-4) 32.9 G/DL 31.5-35.7 [facility] corpuscular hemoglobin, [id number] 12:01:00* Test Item Value Reference Range Interpretation Comme [facility] mean corpuscular hemoglobin, RBC (test code = 785-6) 31.3 pg 26.6-33.0 [facility] corpuscular volume, [id number] 12:01:00* Test Item Value Reference Range Interpretation Comme [facility] mean corpuscular volume, RBC (test code = 787-2) 95 fL 79-97 [facility]hematocrit, [id number] 12:01:00* Test Item Value Reference Range Interpretation Comme nts hematocrit, blood (test code = 4544-3) 39.2 % 34.0-46. 6 [facility]hemoglobin, [id number] 12:01:00* Test Item Value Reference Range Interpretation Comme [facility] hemoglobin, blood (test code = 718-7) 12.9 g/dL 11.1-15.9 [facility] Centererythrocyte (RBC) [id number] 12:01:00* Test Item Value Reference Range Interpretation Comme [facility] erythrocyte (RBC) count (rodolfo t code = 789-8) 4.12 X10E6/UL 3.77-5.28 [facility] Centerleukocyte count, [id number] 12:01:00* Test Item Value Reference Range Interpretation Comme nts leukocyte count, blood (test code = 6690-2) 9.4 X10E3/UL 3.4-10.8 [facility] Healthalcohol, [id number] 12:01:00* Test Item Value Reference Range Interpretation Comme nts alcohol, urine (test code = 2458) Negative % Cutoff=0.020 [facility] Centerphencyclidine screen, [id number] 12:01:00* Test Item Value Reference Range Interpretation Comme nts phencyclidine screen, urine (test code = 3936-2) Negative Cutoff=25 [facility] Healthopiates, urine, labtwdallezjmndu2485-77-12 12:01:00* Test Item Value Reference Range Interpretation Comme nts opiates, urine, semiquantita tive (test code = 3879-4) Negative Wvfazq=081 [facility] Healthcocaine, [id number] 12:01:00* Test Item Value Reference Range Interpretation Comme nts cocaine, urine (test code = 3292) Negative Fditfx=608 [facility] Centercannabinoid screen, [id number] 12:01:00* Test Item Value Reference Range Interpretation Comme nts cannabinoid screen, urine (t est code = 3426-4) Negative Cutoff=50 [facility] Centerbenzodiazepine screen, [id number] 12:01:00* Test Item Value Reference Range Interpretation Comme nts benzodiazepine screen, urine (test code = 3390-2) Negative Lvrmhe=420 [facility] Centerbarbiturates screen, [id number] 12:01:00* Test Item Value Reference Range Interpretation Comme nts barbiturates screen, urine ( test code = 2460) Negative Frlpet=817 [facility] Healthamphetamine screen, [id number] 12:01:00* Test Item Value Reference Range Interpretation Comme nts amphetamine screen, urine (t est code = 3349-8) Negative Nziike=6528 [facility] Healthurine balwnwh0648-03-34 12:01:00* Test Item Value Reference Range Interpretation Comme nts urine culture (test code = 630-4) Klebsiella aerogenes A [facility] Centerhepatitis B surface [id number] 12:01:00* Test Item Value Reference Range Interpretation Comme nts hepatitis B surface antigen (test code = 79) Negative Negative [facility] Centerprogesterone, [id number] 12:01:00* Test Item Value Reference Range Interpretation Comme nts progesterone, serum (test co de = 292) 20.7 ng/mL [facility] HealthRh jxocotdz6944-06-86 12:01:00* Test Item Value Reference Range Interpretation Comme nts Rh antibody (test code = 256) Negative Negative [facility] CenterHIV-CMIA (Chemiluminescent Microparticle Immuno Assay) 2019-07-07 12:01:00* Test Item Value Reference Range Interpretation Comme nts HIV-CMIA (Chemiluminescent Microparticle Immuno Assay) (test code = 622031) Non Reactive Non Reactive [facility] Centerrapid plasma reagin antibody, [id number] 12:01:00* Test Item Value Reference Range Interpretation Comme nts rapid plasma reagin antibody , serum (test code = 5291-0) Non Reactive Non Reactive [facility] Centerhuman chorionic gonadotropin, total, [id number] 12:01:00* Test Item Value Reference Range Interpretation Comme nts human chorionic gonadotropin , total, serum (test code = 3386) [address] m[iU]/mL [facility] jyvpfxh8062-57-06 12:01:00* Test Item Value Reference Range Interpretation Comme nts Rh antigen (test code = 255) Positive [facility] CenterABO blood [id number] 12:01:00* Test Item Value Reference Range Interpretation Comme nts ABO blood group (test code = 116) O [facility] Centercystic fibrosis, [id number] 12:01:00* Test Item Value Reference Range Interpretation Comme nts cystic fibrosis, sc reen (test code = 63284) Comment: [facility]hemoglobin electrophoresis, [id number] 12:01:00* Test Item Value Reference Range Interpretation Comme nts hemoglobin electrophoresis, blood (test code = 5693) Note: [facility] CenterHemoglobin [id number] 12:01:00* Test Item Value Reference Range Interpretation Comme nts Hemoglobin Variant (test code = 71114) 0.0 % >0.0 [facility]hemoglobin [id number] 12:01:00* Test Item Value Reference Range Interpretation Comme nts hemoglobin A2 (test code = 2503) 2.4 % 1.8-3.2 [facility] CenterHuman Papillomavirus test [id number] 11:40:00* Test Item Value Reference Range Interpretation Comme nts Human Papillomavirus test re sult (test code = 75935-4) HPVNotTested [facility] CenterNeisseria gonorrhoeae DNA [id number] 11:39:00* Test Item Value Reference Range Interpretation Comme nts Neisseria gonorrhoeae DNA pr obe (test code = 03404-8) Negative Negative [facility] Centerchlamydia DNA [id number] 11:39:00* Test Item Value Reference Range Interpretation Comme nts chlamydia DNA probe (test co de = 54593-4) Negative Negative [facility] Centerbeta HCG, urine, lsvayvbckhxdesxl7018-55-18 10:58:18* Test Item Value Reference Range Interpretation Comme nts beta HCG, urine, semiquantit ative (test code = 2106-3) positive [facility] Notes Date/Time Note Provider Source 2019-09-11 11:34:00 [facility] ([facility]) EMERGENCY PROVIDER REPORT REPORT#:[id number] REPORT STATUS: Signed DATE:09/11/19 TIME: 1134 PATIENT: DENISE RUBIO UNIT #: [id number] ROOM/BED: AGE: 24 SEX: F PCP PHYS: No Primary or Family Physician SERVICE AUTHOR: Chalo Kothari SEARCH CONSULTANT * ALL edits or amendments must be made on the electronic/computer document * HPI- Female General Confirmed Patient Yes Patient Type New patient Initial Greet Date/Time 09/11/19 1117 Presentation Chief Complaint Pelvic pain Hx Obtained From Patient )( Sudden in Onset? No Onset Occurred Yesterday Symptom Duration Since onset Progression since Onset Intermittent Context of Onset Spontaneous Caused by No trauma by history Location Suprapubic Quality Cramping Radiation No: Does not radiate. Severity: Onset Pain level 1 out of 10 Severity: Current Pain level 2 out of 10 Associated with Denies: Abdominal pain, Abrasion, Anorexia, Chills, Constipation, Fever, Hematemesis, Laceration, Nausea, Rash, UTI symptoms, Vomiting. Associated Other Pt denies other symptoms Exacerbated by Nothing Relieved by Nothing Context Related History Denies: Abdominal surgery, Adhesions intra-abdominal, Cancer, Diabetes mellitus, Endometriosis, Ovarian torsion, Pelvic inflam disease, Polycystic ovary disease, Pyelonephritis, Single kidney, Tubo-ovarian abscess, Tubo-ovarian cyst, Ureterolithiasis, Urinary tract infection, Urolithiasis, Vesicoureteral reflux. Immunization Status General All up to date Free Text HPI Notes Free Text HPI Notes 24-year-old female with no past medical history, states that she is 15 weeks and started having right lower pelvic discomfort for last 2 days. Patient states no discharge no back pain but has UTI symptoms and no vaginal bleeding. Patient denies any fever diarrhea or vomiting but has some nausea related to her . Patient denies any viral contacts or viral illnesses. Risk- Female Risk Stratification Ectopic Risk factors reviewed Review of Systems Focused Review of Systems Constitutional Denies: Chills, Fever, Lethargy. Ears/Nose/Throat Denies: Earache bilat, Nasal congestion, Sore throat. GI Denies: Abdominal pain, Diarrhea, Nausea, Vomiting. Female Reports: Pelvic pain, . Musculoskeletal Denies: Back pain, Extremity pain. Endocrine Denies: Polyuria, Weight loss. Skin Denies: Diaphoresis, Rash. Neurologic Denies: Change LOC, Dizziness, Focal weakness, Headache, Numbness, Slurred speech. Past Medical History - Adult Stated Complaint , VAGINAL PAIN, SUPRAPUBIC PAIN Allergies Coded Allergies: adhesive tape (Intermediate, RASH BLISTERS 09/11/19) hydrocodone bit (From VICODIN) (Severe, BECOMES VIOLENT BLACK OUTS 09/11/19) Home Medications Reported Medications No Known Home Medications Pt reports no significant: Past medical history, Past surgical history Drug Use Denies recreational drugs Smoking status for patients 13 years old or older: Never Smoker Physical Exam Vital Signs Vital Signs First Documented: Result Date Time Pulse Ox 99 09/10 1117 B/P 103/64 09/10 1117 B/P Mean 77 09/10 1117 O2 Delivery Room air 09/10 1116 Temp 36.8 09/10 111 Pulse 88 09/10 1117 Resp 16 09/10 111 Last Documented: Result Date Time Pulse Ox 98 09/10 182 B/P 106/60 09/10 182 B/P Mean 75 09/10 1826 Temp 36.7 06/11 1827 Pulse 80 06/11 1827 Resp 18 09/10 1827 O2 Delivery Room air 09/10 1117 Review of Vital Signs Reviewed Basic Physical Exam Basic PE GEN: Well appearing/NAD, HEAD: Atraumatic/NC, EYES: PERRL, conj clear, ENT: Membranes moist, NECK: Supple, RESP: No resp distress, CV: Reg rate rhythm, ABD: Soft/non-tender, EXT: No gross abnormality, SKIN: No rashes, warm/ dry, NEURO: alert oriented, NEURO: gross movement NL, PSYCH: NL thought content Focused PE General/Const General/Const Awake, Alert, Well appearing Resp/Chest Respiratory/Chest Breath sounds NL, Breath sounds = bilat, No respiratory distress, No rales, No rhonchi, No wheezing Cardiovascular Cardiovascular Heart rate NL, Regular rhythm, Heart sounds NL, Peripheral circulation NL Abdomen/GI Abdomen/GI Soft, Non-tender, No guarding, No rebound MS Back Back Inspection NL, Non-tender, No CVA tenderness Skin Skin Color NL, No rash, Warm, Dry, Turgor NL Genitourinary General Exam deferred Free Text PE Notes Free Text PE Notes pt has some noted suprublic pain on deep palpation with no cva tenderness. Interpretation Diagnostics Lab Results Interpretation Results Laboratory Tests 09/11/19 1210: [Embedded Image Not Available] Laboratory Tests: 09/10 09/10 1210 1120 Chemistry Sodium (136 - 145 mmol/L) 137 Potassium (3.5 - 5.1 mmol/L) 3.6 Chloride (98 - 107 mmol/L) 106.0 Carbon Dioxide (21 - 32 mmol/L) 22.0 Anion Gap (10 - 20) 12.6 BUN (7 - 18 mg/dL) 3 L Creatinine (0.55 - 1.02 mg/dL) 0.50 L Glomerular Filtr Rate (>=60 mL/min) > 60 BUN/Creatinine Ratio (10 - 20) 5.7 L Glucose (74 - 106 mg/dL) 77 Calcium (8.5 - 10.1 mg/dL) 8.5 Hematology WBC (4.5 - 12.5 K/mm3) 11.9 RBC (3.7 - 5.2 mill/mm3) 4.01 Hgb (11.5 - 15.5 gram/dL) 12.5 Hct (36.0 - 46.0 %) 36.4 MCV (80 - 98 fL) 90.8 MCH (27.0 - 33.0 picogram) 31.2 MCHC (33.0 - 36.0 gram/dL) 34.3 RDW (11.6 - 16.2 %) 12.9 Plt Count (150 - 450 K/mm3) 238 MPV (6.7 - 11.0 fL) 11.7 H Miscellaneous Matrnl HCG Beta Subunit (0 - 3 mIU/mL) 37282.0 H Urines Urine HCG, Qual POSITIVE 09/10 1120 Urines Urine Color (YELLOW) YELLOW Urine Appearance (CLEAR) Cloudy H Urine pH (5.0 - 8.0) 5.5 Ur Specific [place] (1.001 - 1.035) 1.020 Urine Protein (NEGATIVE mg/dL) 20 (Trace) H Urine Glucose (UA) (NEGATIVE mg/dL) NEGATIVE Urine Ketones (NEGATIVE mg/dL) NEGATIVE Urine Blood (NEGATIVE mg/dL) 0.06 mg/dL (1+) H Urine Nitrite (NEGATIVE) NEGATIVE Urine Bilirubin (NEGATIVE mg/dL) NEGATIVE Urine Urobilinogen (NEGATIVE mg/dL) Normal Ur Leukocyte Esterase (NEGATIVE Osmin/uL) 500 Osmin/uL (3+) H Urine RBC (0 - 5 #/HPF) 0-2 Urine WBC (0 - 5 per HPF) 51-100 H Ur Epithelial Cells (FEW per HPF) FEW Urine Bacteria (NONE #/HPF) FEW H Urine Mucus (FEW #/LPF) FEW Microbiology: Date/Time Procedure - Status Source Growth 09/10 1120 Urine Culture - RECD URINE Recent Impressions: ULTRASOUND - DUP AB/PEL/SC COMP 09/10 1140 Report Impression - Status: SIGNED Entered: 09/11/2019 1307 IMPRESSION: Single live intrauterine gestation in variable position at 14 weeks 5 days +/- 1 week with average heart rate of 162 beats per minutes. LUIS of March 06, 2020. Posterior, grade 0 placenta without previa or retroplacental hemorrhage. Normal amniotic fluid volume. Color Doppler flow in right ovary. Left ovary is not seen. Impression By: [email or web address] Patricia Mack M.D. ULTRASOUND - US PREG AFTER 1ST TRI 09/10 1200 Report Impression - Status: SIGNED Entered: 09/11/2019 1307 IMPRESSION: Single live intrauterine gestation in variable position at 14 weeks 5 days +/- 1 week with average heart rate of 162 beats per minutes. LUIS of March 06, 2020. Posterior, grade 0 placenta without previa or retroplacental hemorrhage. Normal amniotic fluid volume. Color Doppler flow in right ovary. Left ovary is not seen. Impression By: [email or web address] - Cy Mack M.D. Lab Imaging Statement Laboratory radiographic studies reviewed and considered in the medical decision-making. Point of Care Testing Pulse Oximetry Pulse Ox % 99 On: Room air Interpretation Interpreted by me, Pulse oximetry normal Time 1117 Re-Evaluation MDM Free Text MDM Notes Free Text MDM Notes Informed patient of exam, lab, and imaging findings. Educated on diagnoses, treatment, supportive measures, return precautions and instructions for PCP f/u in 24-48 hours. Patient verbalizes understanding and agrees with plan of care. Patient is nontoxic appearing in NAD, and denies pain at time of discharge. Additional Text pt aware to f/u with ob and obtain hcg serum level in 24 hours to obtain health of preg. pt also educated on pregnacy and body changes. Re-Evaluation/Progress Re-Evaluation/Progress Text/Dict Note Patient tolerated 4 ounces of fluid without difficulty and patient states he feels much better and is ready to go home. Time of Re-Eval 1500 Re-Eval Status Improved Eval Following Treatment Pt. feels better, Condition improved Pain Re-Evaluation Pain improved, 04/11 Exam Post Tx - General Active, Alert, Appears non-toxic, Appears well, Vital signs stable, Capillary refill normal, Hydration normal Exam Post Tx - Sys Review Lungs clear, Abdomen soft, Abdomen nontender, Mental status baseline Plan Post Re-Eval PO challenge, Plan discharge Tissue Perfusion Reassessment Patient tissue perfusion reassessment completed. ED Course Medication(s) Ordered Medication(s) Ordered: Anti-Infective Agents Sig/Maverick Start time Last Medication Dose Route Stop Time Status Admin Ceftriaxone Sodium 1,000 MG X1ED STA 09/10 1506 DC 09/10 Sodium Chloride 10 ML IV 09/10 1508 1521 Central Nervous System Agents Sig/Maverick Start time Last Medication Dose Route Stop Time Status Admin Acetaminophen 1,000 MG X1ED STA 09/10 1120 DC 09/10 PO 09/10 1121 1155 Electrolytic, Caloric, And Harjeet Sig/Maverick Start time Last Medication Dose Route Stop Time Status Admin Sodium Chloride 1,000 ML X1ED STA 09/10 1120 DC 09/10 IV 09/10 1219 1155 Gastrointestinal Drugs Sig/Maverick Start time Last Medication Dose Route Stop Time Status Admin Ondansetron Base 4 MG STAT STA 09/10 1121 DC 09/10 SL 09/10 1122 1154 Patient Discharge Departure Vital Signs/Condition Vital Signs First Documented: Result Date Time Pulse Ox 99 09/10 1117 B/P 103/64 09/10 1117 B/P Mean 77 09/10 1117 O2 Delivery Room air 09/10 1117 Temp 36.8 09/10 1117 Pulse 88 09/10 1117 Resp 16 09/10 1117 Last Documented: Result Date Time Pulse Ox 98 09/10 1827 B/P 106/60 09/10 1827 B/P Mean 75 09/10 1827 Temp 36.7 09/10 1827 Pulse 80 09/10 1827 Resp 18 09/10 1827 O2 Delivery Room air 09/10 1117 All vital signs available at the time of this entry have been reviewed. Condition Stable Clinical Impression Clinical Impression Primary Impression: Threatened miscarriage Secondary Impressions: UTI (urinary tract infection) Disposition Decision Discharge )( Discharged to Home Yes )( Time 1508 )( Date 09/11/19 COVID-19 Discharge Plan CDC Criteria Met for Testing No Discharge/Care Plan Counseled Regarding Diagnosis, Lab results, Imaging studies, Prescriptions, Need for follow-up, When to return to ED Rx Drug Database Reviewed Yes Prescriptions tylenol (Auto) Prescriptions Current Visit Scripts No Known Home Medications Prescriptions Reviewed Risks, Benefits, Alternative treatment Referrals No Primary or Family Physician (PCP/Family) Discharge Note I have spoken with the patient and/or caregivers. I have explained the patient's condition, diagnoses and treatment plan based on the information available to me at this time. I have answered the patient's and/or caregiver's questions and addressed any concerns. The patient and/or caregivers have as good an understanding of the patient's diagnosis, condition and treatment plan as can be expected at this point. The vital signs have been stable. The patient's condition is stable and appropriate for discharge from the emergency department. The patient will pursue further outpatient evaluation with the primary care physician or other designated or consulting physician as outlined in the discharge instructions. The patient and/or caregivers are agreeable to this plan of care and follow-up instructions have been explained in detail. The patient and/or caregivers have received these instructions in written format and have expressed an understanding of the discharge instructions. The patient and/or caregivers are aware that any significant change in condition or worsening of symptoms should prompt an immediate return to this or the closest emergency department or a call to 911. Quality Measures BP F/U for HTN BP in normal range US in Preg w/AP/VB Trans-abd/vag US done, Preg location documented Smoking Cessation Screened, non user at 0857 RPT #:[id number] END OF REPORT [facility] 2019-09-11 11:34:00 [facility] ([facility]) EMERGENCY PROVIDER REPORT REPORT#:[id number] REPORT STATUS: Signed DATE:09/11/19 TIME: 1134 PATIENT: DENISE RUBIO UNIT #: [id number] ROOM/BED: AGE: 24 SEX: F PCP PHYS: No Primary or Family Physician SERVICE AUTHOR: Chalo Kothari SEARCH CONSULTANT * ALL edits or amendments must be made on the electronic/computer document * Chalo Kothari 09/11/19 1134: HPI- Female General Confirmed Patient Yes Patient Type New patient Presentation Chief Complaint Pelvic pain Hx Obtained From Patient )( Sudden in Onset? No Onset Occurred Yesterday Symptom Duration Since onset Progression since Onset Intermittent Context of Onset Spontaneous Caused by No trauma by history Location Suprapubic Quality Cramping Radiation No: Does not radiate. Severity: Onset Pain level 1 out of 10 Severity: Current Pain level 2 out of 10 Associated with Denies: Abdominal pain, Abrasion, Anorexia, Chills, Constipation, Fever, Hematemesis, Laceration, Nausea, Rash, UTI symptoms, Vomiting. Associated Other Pt denies other symptoms Exacerbated by Nothing Relieved by Nothing Context Related History Denies: Abdominal surgery, Adhesions intra-abdominal, Cancer, Diabetes mellitus, Endometriosis, Ovarian torsion, Pelvic inflam disease, Polycystic ovary disease, Pyelonephritis, Single kidney, Tubo-ovarian abscess, Tubo-ovarian cyst, Ureterolithiasis, Urinary tract infection, Urolithiasis, Vesicoureteral reflux. Immunization Status General All up to date Free Text HPI Notes Free Text HPI Notes 24-year-old female with no past medical history, states that she is 15 weeks and started having right lower pelvic discomfort for last 2 days. Patient states no discharge no back pain but has UTI symptoms and no vaginal bleeding. Patient denies any fever diarrhea or vomiting but has some nausea related to her . Patient denies any viral contacts or viral illnesses. Risk- Female Risk Stratification Ectopic Risk factors reviewed Review of Systems Focused Review of Systems Constitutional Denies: Chills, Fever, Lethargy. Ears/Nose/Throat Denies: Earache bilat, Nasal congestion, Sore throat. GI Denies: Abdominal pain, Diarrhea, Nausea, Vomiting. Female Reports: Pelvic pain, . Musculoskeletal Denies: Back pain, Extremity pain. Endocrine Denies: Polyuria, Weight loss. Skin Denies: Diaphoresis, Rash. Neurologic Denies: Change LOC, Dizziness, Focal weakness, Headache, Numbness, Slurred speech. Past Medical History - Adult Stated Complaint , VAGINAL PAIN, SUPRAPUBIC PAIN Allergies Coded Allergies: adhesive tape (Intermediate, RASH BLISTERS 09/11/19) hydrocodone bit (From VICODIN) (Severe, BECOMES VIOLENT BLACK OUTS 09/11/19) Home Medications Reported Medications No Known Home Medications Pt reports no significant: Past medical history, Past surgical history Drug Use Denies recreational drugs Smoking status for patients 13 years old or older: Never Smoker Physical Exam Vital Signs Vital Signs First Documented: Result Date Time Pulse Ox 99 09/10 1117 B/P 103/64 09/10 1117 B/P Mean 77 09/10 1117 O2 Delivery Room air 09/10 1116 Temp 36.8 09/10 1116 Pulse 88 09/10 111 Resp 16 09/10 1116 Last Documented: Result Date Time Pulse Ox 98 09/10 1826 B/P 106/60 09/10 1826 B/P Mean 75 09/10 1826 Temp 36.7 09/10 1826 Pulse 80 09/10 1826 Resp 18 09/10 182 O2 Delivery Room air 09/10 111 Review of Vital Signs Reviewed Basic Physical Exam Basic PE GEN: Well appearing/NAD, HEAD: Atraumatic/NC, EYES: PERRL, conj clear, ENT: Membranes moist, NECK: Supple, RESP: No resp distress, CV: Reg rate rhythm, ABD: Soft/non-tender, EXT: No gross abnormality, SKIN: No rashes, warm/ dry, NEURO: alert oriented, NEURO: gross movement NL, PSYCH: NL thought content Focused PE General/Const General/Const Awake, Alert, Well appearing Resp/Chest Respiratory/Chest Breath sounds NL, Breath sounds = bilat, No respiratory distress, No rales, No rhonchi, No wheezing Cardiovascular Cardiovascular Heart rate NL, Regular rhythm, Heart sounds NL, Peripheral circulation NL Abdomen/GI Abdomen/GI Soft, Non-tender, No guarding, No rebound MS Back Back Inspection NL, Non-tender, No CVA tenderness Skin Skin Color NL, No rash, Warm, Dry, Turgor NL Genitourinary General Exam deferred Free Text PE Notes Free Text PE Notes pt has some noted suprublic pain on deep palpation with no cva tenderness. Interpretation Diagnostics Lab Results Interpretation Results Laboratory Tests 09/11/19 1210: [Embedded Image Not Available] Laboratory Tests: 09/10 09/10 1210 1120 Chemistry Sodium (136 - 145 mmol/L) 137 Potassium (3.5 - 5.1 mmol/L) 3.6 Chloride (98 - 107 mmol/L) 106.0 Carbon Dioxide (21 - 32 mmol/L) 22.0 Anion Gap (10 - 20) 12.6 BUN (7 - 18 mg/dL) 3 L Creatinine (0.55 - 1.02 mg/dL) 0.50 L Glomerular Filtr Rate (>=60 mL/min) > 60 BUN/Creatinine Ratio (10 - 20) 5.7 L Glucose (74 - 106 mg/dL) 77 Calcium (8.5 - 10.1 mg/dL) 8.5 Hematology WBC (4.5 - 12.5 K/mm3) 11.9 RBC (3.7 - 5.2 mill/mm3) 4.01 Hgb (11.5 - 15.5 gram/dL) 12.5 Hct (36.0 - 46.0 %) 36.4 MCV (80 - 98 fL) 90.8 MCH (27.0 - 33.0 picogram) 31.2 MCHC (33.0 - 36.0 gram/dL) 34.3 RDW (11.6 - 16.2 %) 12.9 Plt Count (150 - 450 K/mm3) 238 MPV (6.7 - 11.0 fL) 11.7 H Miscellaneous Matrnl HCG Beta Subunit (0 - 3 mIU/mL) 52529.0 H Urines Urine HCG, Qual POSITIVE 09/10 112 Urines Urine Color (YELLOW) YELLOW Urine Appearance (CLEAR) Cloudy H Urine pH (5.0 - 8.0) 5.5 Ur Specific [place] (1.001 - 1.035) 1.020 Urine Protein (NEGATIVE mg/dL) 20 (Trace) H Urine Glucose (UA) (NEGATIVE mg/dL) NEGATIVE Urine Ketones (NEGATIVE mg/dL) NEGATIVE Urine Blood (NEGATIVE mg/dL) 0.06 mg/dL (1+) H Urine Nitrite (NEGATIVE) NEGATIVE Urine Bilirubin (NEGATIVE mg/dL) NEGATIVE Urine Urobilinogen (NEGATIVE mg/dL) Normal Ur Leukocyte Esterase (NEGATIVE Osmin/uL) 500 Osmin/uL (3+) H Urine RBC (0 - 5 #/HPF) 0-2 Urine WBC (0 - 5 per HPF) 51-100 H Ur Epithelial Cells (FEW per HPF) FEW Urine Bacteria (NONE #/HPF) FEW H Urine Mucus (FEW #/LPF) FEW Microbiology: Date/Time Procedure - Status Source Growth 09/10 112 Urine Culture - COMP URINE ENTEROBACTER AEROGENES Recent Impressions: ULTRASOUND - DUP AB/PEL/SC COMP 09/10 1140 Report Impression - Status: SIGNED Entered: 09/11/2019 1307 IMPRESSION: Single live intrauterine gestation in variable position at 14 weeks 5 days +/- 1 week with average heart rate of 162 beats per minutes. LUIS of March 06, 2020. Posterior, grade 0 placenta without previa or retroplacental hemorrhage. Normal amniotic fluid volume. Color Doppler flow in right ovary. Left ovary is not seen. Impression By: Sagar Mack M.D. ULTRASOUND - US PREG AFTER TRI 09/10 1200 Report Impression - Status: SIGNED Entered: 09/11/2019 1307 IMPRESSION: Single live intrauterine gestation in variable position at 14 weeks 5 days +/- 1 week with average heart rate of 162 beats per minutes. LUIS of March 06, 2020. Posterior, grade 0 placenta without previa or retroplacental hemorrhage. Normal amniotic fluid volume. Color Doppler flow in right ovary. Left ovary is not seen. Impression By: Sagar Mack, M.D. Lab Imaging Statement Laboratory radiographic studies reviewed and considered in the medical decision-making. Point of Care Testing Pulse Oximetry Pulse Ox % 99 On: Room air Interpretation Interpreted by me, Pulse oximetry normal Time 1117 Re-Evaluation MDM Free Text MDM Notes Free Text MDM Notes Informed patient of exam, lab, and imaging findings. Educated on diagnoses, treatment, supportive measures, return precautions and instructions for PCP f/u in 24-48 hours. Patient verbalizes understanding and agrees with plan of care. Patient is nontoxic appearing in NAD, and denies pain at time of discharge. Additional Text pt aware to f/u with ob and obtain hcg serum level in 24 hours to obtain health of preg. pt also educated on pregnacy and body changes. Re-Evaluation/Progress Re-Evaluation/Progress Text/Dict Note Patient tolerated 4 ounces of fluid without difficulty and patient states he feels much better and is ready to go home. Time of Re-Eval 1500 Re-Eval Status Improved Eval Following Treatment Pt. feels better, Condition improved Pain Re-Evaluation Pain improved, 04/11 Exam Post Tx - General Active, Alert, Appears non-toxic, Appears well, Vital signs stable, Capillary refill normal, Hydration normal Exam Post Tx - Sys Review Lungs clear, Abdomen soft, Abdomen nontender, Mental status baseline Plan Post Re-Eval PO challenge, Plan discharge Tissue Perfusion Reassessment Patient tissue perfusion reassessment completed. ED Course Medication(s) Ordered Medication(s) Ordered: Anti-Infective Agents Sig/Maverick Start time Last Medication Dose Route Stop Time Status Admin Ceftriaxone Sodium 1,000 MG X1ED STA 09/10 1506 DC 09/10 Sodium Chloride 10 ML IV 09/10 1508 1521 Central Nervous System Agents Sig/Maverick Start time Last Medication Dose Route Stop Time Status Admin Acetaminophen 1,000 MG X1ED STA 09/10 1120 DC 09/10 PO 09/10 1121 1155 Electrolytic, Caloric, And Harjeet Sig/Maverick Start time Last Medication Dose Route Stop Time Status Admin Sodium Chloride 1,000 ML X1ED STA 09/10 1120 DC 09/10 IV 09/10 1219 1155 Gastrointestinal Drugs Sig/Maverick Start time Last Medication Dose Route Stop Time Status Admin Ondansetron Base 4 MG STAT STA 09/10 1121 DC 09/10 SL 09/10 1122 1154 Patient Discharge Departure Vital Signs/Condition Vital Signs First Documented: Result Date Time Pulse Ox 99 09/10 1117 B/P 103/64 09/10 1117 B/P Mean 77 09/10 1117 O2 Delivery Room air 09/10 1116 Temp 36.8 09/10 1117 Pulse 88 09/10 1117 Resp 16 09/10 111 Last Documented: Result Date Time Pulse Ox 98 09/10 1826 B/P 106/60 09/10 1826 B/P Mean 75 09/10 1826 Temp 36.7 09/10 182 Pulse 80 09/107 Resp 18 09/10 1826 O2 Delivery Room air 09/10 111 All vital signs available at the time of this entry have been reviewed. Condition Stable Clinical Impression Clinical Impression Primary Impression: Threatened miscarriage Secondary Impressions: UTI (urinary tract infection) Disposition Decision Discharge )( Discharged to Home Yes )( Time 1508 )( Date 09/11/19 COVID-19 Discharge Plan [facility] Criteria Met for Testing No Discharge/Care Plan Counseled Regarding Diagnosis, Lab results, Imaging studies, Prescriptions, Need for follow-up, When to return to ED Rx Drug Database Reviewed Yes Prescriptions tylenol (Auto) Prescriptions Current Visit Scripts No Known Home Medications Prescriptions Reviewed Risks, Benefits, Alternative treatment Referrals No Primary or Family Physician (PCP/Family) Discharge Note I have spoken with the patient and/or caregivers. I have explained the patient's condition, diagnoses and treatment plan based on the information available to me at this time. I have answered the patient's and/or caregiver's questions and addressed any concerns. The patient and/or caregivers have as good an understanding of the patient's diagnosis, condition and treatment plan as can be expected at this point. The vital signs have been stable. The patient's condition is stable and appropriate for discharge from the emergency department. The patient will pursue further outpatient evaluation with the primary care physician or other designated or consulting physician as outlined in the discharge instructions. The patient and/or caregivers are agreeable to this plan of care and follow-up instructions have been explained in detail. The patient and/or caregivers have received these instructions in written format and have expressed an understanding of the discharge instructions. The patient and/or caregivers are aware that any significant change in condition or worsening of symptoms should prompt an immediate return to this or the closest emergency department or a call to 911. Quality Measures BP F/U for HTN BP in normal range US in Preg w/AP/VB Trans-abd/vag US done, Preg location documented Smoking Cessation Screened, non user Macrina Rowe. 09/17/19 1634: HPI- Female General Initial Greet Date/Time 09/11/19 1117 Patient Discharge Departure Supervising Physician Note MidLv Saw Pt Alone I have reviewed the PA/SEARCH CONSULTANT's note and plan of care. I was available for consultation as needed at all times during the patient's visit in the emergency department. at 0857 at 1634 RPT #:[id number] [facility]
[2024-12-20] MEDS ORDERED: METHYLPREDNISOLONE 125 MG INJ ONE (15:03)
--- NOTE | 2024-12-20 15:54 | EDPHYS ---
Physician Documentation [facility] Name: Denise Mistry Age: 29 yrs Sex: Female : 1995 Arrival Date: 12/20/2024 Time: 14:36 Bed 12 Private MD: ED Physician Charles Borges HPI: 12/20 15:08 This 29 yrs old Female presents to ER via Ambulatory with complaints of Allergic rn Reaction. 15:08 Patient reports itching and rash to face, torso, and extremities. Was exposed to plant rn oils and contact allergy reported. Exposed last night. Daughter with identical rashes and itching. No shortness of breath.. 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 - Infectious Disease History:: Denies. - Family history:: not pertinent. - Hospitalizations: : No recent hospitalization is reported. - Social history:: Smoking status: Patient denies any tobacco usage or history of. ROS: 15:08 Constitutional: Negative for fever, chills, and weight loss, Cardiovascular: Negative rn for chest pain, palpitations, and edema, Respiratory: Negative for shortness of breath, cough, wheezing, and pleuritic chest pain, Abdomen/GI: Negative for abdominal pain, nausea, vomiting, diarrhea, and constipation, Back: Negative for injury and pain, MS/Extremity: Negative for injury and deformity, Skin: Positive for rash and itching Neuro: Negative for headache, weakness, numbness, tingling, and seizure, Exam: 15:08 Constitutional: This is a well developed, well nourished patient who is awake, alert, rn and in no acute distress. ENT: No stridor Cardiovascular: Regular rate and rhythm . No pulse deficits. Respiratory: No increased work of breathing, no retractions or nasal flaring. Skin: Diffuse urticarial lesions with excoriations, most evident on lower extremities, upper extremities and face. Vital Signs: 14:51 BP 127 / 81; Pulse 89; Resp 16; Temp 98.3; Pulse Ox 100% on R/A; hb 16:02 BP 128 / 78; Pulse 86; Resp 16; Temp 98.2; Pulse Ox 100% ; me1 MDM: 14:44 Medical Screening Exam initiated rn 15:53 Differential diagnosis: contact dermatitis. Data reviewed: vital signs, nurses notes, rn and as a result, I will discharge patient. Counseling: I had a detailed discussion with the patient and/or guardian regarding the historical points, exam findings, and any diagnostic results supporting the discharge/admit diagnosis, the need for outpatient follow up, to return to the emergency department if symptoms worsen or persist or if there are any questions or concerns that arise at home. Response to treatment: the patient's symptoms have mildly improved after treatment, and as a result, I will discharge patient. Special discussion: I discussed with the patient/guardian in detail that at this point there is no indication for admission to the hospital. It is understood, however, that if the symptoms persist or worsen the patient needs to return immediately for re-evaluation. Administered Medications: 15:09 Drug: MethylPREDNISolone Sodium Succinate IM 125 mg IM once Route: IM; Site: right hb deltoid; 15:54 Follow up: Response: No adverse reaction me1 Disposition Summary: 12/20/24 15:53 Discharge Ordered Notes: Location: Home rn Problem: new rn Symptoms: have improved rn Condition: Stable rn Diagnosis - Allergic contact dermatitis due to plants, except food rn Followup: rn - With: Private Physician - When: As needed - Reason: Recheck today's complaints, Re-evaluation by your physician Discharge Instructions: - Discharge Summary Sheet rn - Contact Dermatitis rn Forms: - Medication Reconciliation Form rn - Antibiotic varnish maker - Prescription Opioid Use rn - Patient Portal Instructions rn - Leadership Thank You Letter rn Prescriptions: - Prednisone 20 mg Oral Tablet - take 3 tablets ORAL route once daily for 5 days; 15 tablet; Refills: 0, Product rn Selection Permitted Signatures: Charles Borges MD MD rn Baxter, Heather, RN RN Tyra Brooks RN RN me1
--- NOTE | 2024-12-20 15:54 | ER ---
Nurse's Notes [facility] Name: Denise Mistry Age: 29 yrs Sex: Female : 1995 Arrival Date: 12/20/2024 Time: 14:36 Bed 12 Private MD: Diagnosis: Allergic contact dermatitis due to plants, except food Presentation: 12/20 14:51 Chief complaint: Rash on face, trunk, and extremities that started after working in yard yesterday. Mild periorbital swelling noted. Coronavirus screen: At this time, the client does not indicate any symptoms associated with coronavirus-19. Ebola Screen: No symptoms or risks identified at this time. Onset of symptoms was December 19, 2024. 14:51 Method Of Arrival: Ambulatory hb 14:51 Acuity: ELLE 4 hb 16:03 Initial Sepsis Screen: Does the patient meet any 2 criteria? No. Patient's initial ga1 sepsis screen is negative. Does the patient have a suspected source of infection? No. Patient's initial sepsis screen is negative. Risk Assessment: Do you want to hurt yourself or someone else? Patient reports no desire to harm self or others. Triage Assessment: 14:54 General: Appears in no apparent distress. Behavior is calm, cooperative, appropriate hb for age. Neuro: Level of Consciousness is awake, alert, obeys commands, Oriented to person, place, time, situation. Cardiovascular: Patient's skin is warm and dry. Respiratory: Respiratory effort is even, unlabored, Respiratory pattern is regular, symmetrical. 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 - Infectious Disease History:: Denies. - Family history:: not pertinent. - Hospitalizations: : No recent hospitalization is reported. - Social history:: Smoking status: Patient denies any tobacco usage or history of. Screenin:01 [facility] ED Fall Risk Assessment (Adult) History of falling in the last 3 months, me1 including since admission No falls in past 3 months (0 pts) Confusion or Disorientation No (0 pts) Intoxicated or Sedated No (0 pts) Impaired Gait No (0 pts) Mobility Assist Device Used No (0 pt) Altered Elimination No (0 pt) Score/Fall Risk Level 0 - 2 = Low Risk Maintained a safe environment, Provided non-skid footwear, Hourly rounding (assess needs \T\ fall precautionary measures) done. Abuse screen: Denies threats or abuse. Nutritional screening: No deficits noted. Tuberculosis screening: No symptoms or risk factors identified. Assessment: 14:54 General: See triage assessment . hb 16:01 Pain: Denies pain. me1 Vital Signs: 14:51 BP 127 / 81; Pulse 89; Resp 16; Temp 98.3; Pulse Ox 100% on R/A; hb 16:02 BP 128 / 78; Pulse 86; Resp 16; Temp 98.2; Pulse Ox 100% ; ga1 ED Course: 14:40 Patient arrived in ED. ts1 14:44 Charles Borges MD is Attending Physician. rn 14:52 Triage completed. hb 14:54 Arm band placed on. 16:01 Tyra Brooks, LINUS is Primary Nurse. me1 16:01 Patient has correct armband on for positive identification. Bed in low position. Call me1 light in reach. Side rails up X2. Provided Education on: POC. Verbalized understanding.. 16:01 No provider procedures requiring assistance completed. Patient did not have IV access me1 during this emergency room visit. Administered Medications: 15:09 Drug: MethylPREDNISolone Sodium Succinate IM 125 mg IM once Route: IM; Site: right hb deltoid; 15:54 Follow up: Response: No adverse reaction me1 Medication: 16:01 VIS not applicable for this client. ga1 Outcome: 15:53 Discharge ordered by . rn 16:02 Discharged to home ambulatory, me1 16:02 Condition: stable 16:02 Discharge instructions given to patient, Instructed on discharge instructions, follow up and referral plans. medication usage, Demonstrated understanding of instructions, follow-up care, medications, Prescriptions given X 1, 16:03 Patient left the ED. ga1 Signatures: Charles Borges MD MD rn Baxter, Heather, RN RN hb Simpson, Tanya, PAS PAS ts1 Tyra Brooks, LINUS RN [facility] [place]
[2024-12-20 16:34] VITALS: O2SAT 100
[2024-12-20 16:35] VITALS: BP 128/78; TEMP 98.2
== END 2024-12-20 16:03 | disposition home or self-care (01) ==
LOC: ER 14:36
DX: L23.7 Allergic contact dermatitis due to plants, except food (principal); Z91.048 Other nonmedicinal substance allergy status
CPT/HCPCS: 96372; 99284; J2919

== ENCOUNTER 2025-01-02 09:02 | Emergency (ER) | payer SELFPAY ==
--- NOTE | 2025-01-02 09:25 | EDPHYS ---
Physician Documentation [facility] Name: Denise Mistry Age: 29 yrs Sex: Female : 1995 Arrival Date: 01/02/2025 Time: 09: Bed 13 Private MD: ED Physician Graciela Lopes HPI: 01/02 10:22 This 29 yrs old Female presents to ER via Ambulatory with complaints of Rash. dr5 10:22 The patient's rash thought to be caused by scabies, Psoriasis Dermatitis. The rash is dr5 located on the body diffusely. Onset: The symptoms/episode began/occurred 12/17/24. Treatment given at home: Benadryl, OTC lotion/cream steroid lotion/cream. Patient is a 29-year-old female with no past medical history coming in with diffuse rash that has been going on since December 17. Patient reports that she has been using Benadryl, hydroxyzine, completed steroid Dosepak with no relief. Patient states that she is not able to see deli clerk yet due to patient not having insurance. Patient reports that she just recently moved from [place] and was on Medicaid and not able to transition her taxes until 60 days. Patient also reports that her neighbor is being treated for scabies. Patient requesting treatment as well as states that she has cleaned all her sheets with hot bleach water and all her close.. Historical: - Allergies: 09: Adhesives; iw - PMHx: : None; iw - PSHx: : section; iw - Immunization history:: Adult Immunizations not up to date. - Infectious Disease History:: Denies. - Social history:: Smoking status: Patient reports the use of cigarette tobacco products, smokes one pack cigarettes per day. ROS: 10:22 Constitutional: as per hpi dr5 Exam: 10:22 Constitutional: This is a well developed, well nourished patient who is awake, alert, dr5 and in no acute distress. Head/Face: Normocephalic, atraumatic. ENT: Nares patent. No nasal discharge, no septal abnormalities noted. Tympanic membranes are normal and external auditory canals are clear. Oropharynx with no redness, swelling, or masses, exudates, or evidence of obstruction, uvula midline. Mucous membranes moist. Neck: Trachea midline, no thyromegaly or masses palpated, and no cervical lymphadenopathy. Supple, full range of motion without nuchal rigidity, or vertebral point tenderness. No Meningismus. Chest/axilla: Normal chest wall appearance and motion. Nontender with no deformity. No lesions are appreciated. Cardiovascular: Regular rate and rhythm with a normal S1 and S2. Normal PMI, no JVD. No pulse deficits. Respiratory: Lungs have equal breath sounds bilaterally, clear to auscultation. No rales, rhonchi or wheezes noted. No increased work of breathing, no retractions or nasal flaring. Back: No spinal tenderness. No costovertebral tenderness. Full range of motion. Female : Normal external genitalia. Skin: Warm, dry with normal turgor. Diffuse rash with multiple areas of macular papular rash, lines of erythema concerning for scabies on hands, legs, and chacko scaling on right upper leg. MS/ Extremity: Pulses equal, no cyanosis. Neurovascular intact. Full, normal range of motion. Neuro: Awake and alert, GCS 15, oriented to person, place, time, and situation. Cranial nerves II-XII grossly intact. Motor strength 5/5 in all extremities. Sensory grossly intact. Cerebellar exam normal. Normal gait. Vital Signs: 09:20 BP 158 / 105; Pulse 103; Resp 20; Temp 97.6; Pulse Ox 100% on R/A; Weight 95.71 kg; iw Height 5 ft. 3 in. ; 09:39 BP 134 / 84; Pulse 81; Resp 16; Pulse Ox 98% on R/A; iw 09:20 Body Mass Index 37.38 (95.71 kg, 160.02 cm) iw MDM: 09:05 Medical Screening Exam initiated dr5 10:22 Differential diagnosis: impetigo, varicella, allergic reaction, parasite infection, dr5 Scabies. Data reviewed: vital signs, nurses notes, old medical records, Reviewed last note in ER to see what patient's medications were given. Consideration of Admission/Observation Escalation of care including admission/observation considered. Escalation considered patient found to have fever with concerning rash such as SJS. I considered the following discharge prescriptions or medication management in the emergency department I discussed and recommended Over The Counter medications. Care significantly affected by the following Social Determinants of Health: Poor access to healthcare and/or lack of insurance, Poor access to transportation, Problems related to employment. Counseling: I had a detailed discussion with the patient and/or guardian regarding the historical points, exam findings, and any diagnostic results supporting the discharge/admit diagnosis, the presence of at least one elevated blood pressure reading (>120/80) during this emergency department visit, the need for outpatient follow up, for definitive care, a deli clerk, to return to the emergency department if symptoms worsen or persist or if there are any questions or concerns that arise at home. Special discussion: Based on the history and exam findings, there is no indication for further emergent testing or inpatient evaluation. I discussed with the patient/guardian the need to see the deli clerk for further evaluation of the symptoms. ED course: Patient has been scratching all her wounds with concerns for possible cellulitis. Will cover with cephalexin. Will give patient permethrin to use for possible scabies. Recommended cleaning all sheets and close. I recommended patient follow-up with my CH[facility] and dermatology for available for further management. All questions answered. Recommended increase hydration, and use Benadryl and Pepcid.. Administered Medications: No medications were administered Disposition Summary: 01/02/25 09:24 Discharge Ordered Notes: Location: Home dr5 Condition: Stable dr5 Diagnosis - Rash and other nonspecific skin eruption dr5 Followup: dr5 - With: Emergency Department - When: As needed - Reason: Worsening of condition Followup: dr5 - With: Private Physician - When: [facility] - Reason: Recheck today's complaints, Continuance of care, Re-evaluation by your physician Discharge Instructions: - Discharge Summary Sheet dr5 - Rash, Adult dr5 Forms: - Medication Reconciliation Form dr5 - Patient Portal Instructions dr5 - Leadership Thank You Letter dr5 Prescriptions: - permethrin 1 % Topical liquid - apply 60 milliliter TOPICAL route once may repeat treatment 7 days after first dr5 treatment; 120 milliliter; Refills: 0, Product Selection Permitted - Cephalexin 500 mg Oral Capsule - take 1 capsule ORAL route every 12 hours for 10 days; 20 capsule; Refills: 0, dr5 Product Selection Permitted Signatures: Jyotsna Molina RN RN iw Kb Silveira, JOANIE [employer] INTERN-Cdr5
--- NOTE | 2025-01-02 09:25 | ER ---
Nurse's Notes [facility] Name: Denise Mistry Age: 29 yrs Sex: Female : 1995 Arrival Date: 01/02/2025 Time: : Bed 13 Private MD: Diagnosis: Rash and other nonspecific skin eruption Presentation: 01/02 09:20 Chief complaint: Patient states: painful, itching rash started on 12/17/24. Coronavirus iw screen: At this time, the client does not indicate any symptoms associated with coronavirus-19. Ebola Screen: No symptoms or risks identified at this time. Initial Sepsis Screen: Does the patient meet any 2 criteria? No. Patient's initial sepsis screen is negative. Does the patient have a suspected source of infection? No. Patient's initial sepsis screen is negative. Risk Assessment: Do you want to hurt yourself or someone else? Patient reports no desire to harm self or others. Onset of symptoms was December 17, 2024. 09:20 Method Of Arrival: Ambulatory iw 09:20 Acuity: ELLE 4 iw Triage Assessment: : General: Appears in no apparent distress. uncomfortable, well groomed, well developed, iw Behavior is calm, cooperative, appropriate for age. Pain: Complains of pain in back, right leg and left leg. Neuro: Level of Consciousness is awake, alert, obeys commands, Oriented to person, place, time, situation, Appropriate for age. Cardiovascular: Patient's skin is warm and dry. Respiratory: Airway is patent Respiratory effort is even, unlabored, Respiratory pattern is regular, symmetrical. Derm: Rash noted that is itchy, red. Historical: - Allergies: : Adhesives; iw - PMHx: None; iw - PSHx: : section; iw - Immunization history:: Adult Immunizations not up to date. - Infectious Disease History:: Denies. - Social history:: Smoking status: Patient reports the use of cigarette tobacco products, smokes one pack cigarettes per day. Screenin: [facility] ED Fall Risk Assessment (Adult) History of falling in the last 3 months, iw including since admission No falls in past 3 months (0 pts) Confusion or Disorientation No (0 pts) Intoxicated or Sedated No (0 pts) Impaired Gait No (0 pts) Mobility Assist Device Used No (0 pt) Altered Elimination No (0 pt) Score/Fall Risk Level 0 - 2 = Low Risk Oriented to surroundings, Maintained a safe environment, Educated pt \T\ family on fall prevention, incl call for assistance when getting out of bed. Abuse screen: Denies threats or abuse. Denies injuries from another. Nutritional screening: No deficits noted. Tuberculosis screening: No symptoms or risk factors identified. Assessment: 09:25 General: see triage assessment . iw Vital Signs: 09:20 BP 158 / 105; Pulse 103; Resp 20; Temp 97.6; Pulse Ox 100% on R/A; Weight 95.71 kg; iw Height 5 ft. 3 in. ; 09:39 BP 134 / 84; Pulse 81; Resp 16; Pulse Ox 98% on R/A; iw 09:20 Body Mass Index 37.38 (95.71 kg, 160.02 cm) iw ED Course: 09:04 Patient arrived in ED. cj3 09:05 [facility]5 09:05 Graciela Lopes MD is Attending Physician. dr5 09:09 Sandra Morrison, RN is Primary Nurse. af3 09:23 Triage completed. iw 09:23 Arm band placed on. iw 09:25 Patient has correct armband on for positive identification. Bed in low position. Call iw light in reach. Provided Education on: call light use. 09:25 No provider procedures requiring assistance completed. iw Administered Medications: No medications were administered Medication: 09:26 VIS not applicable for this client. iw Outcome: 09:24 Discharge ordered by . dr5 09:40 Patient left the ED. iw Signatures: Jyotsna Molina RN RN iw Sandra Morrison RN RN af3 Kb Silveira FNP-C FNP-Cdr5 Marnie Roblero cj3
[2025-01-02 09:50] VITALS: BP 158/105; TEMP 97.6; O2SAT 100
== END 2025-01-02 09:40 | disposition home or self-care (01) ==
LOC: ER 09:02
DX: R21 Rash and other nonspecific skin eruption (principal)
CPT/HCPCS: 99281